=== PATIENT | male | born 1945 | race Caucasian/White ===

== ENCOUNTER 2016-05-04 06:45 | Day surgery (SDC) | payer OTHER ==
[2016-04-26 10:06] VITALS: BMI 21.0
[~2016-05-04] VITALS: Ht 180.3 cm; Wt 68.2 kg
[~2016-05-04 06:45] MED LIST: ACET325T30 PO; ALBU4TAB10 INH; ASPI81TA28 PO; ATOR10TA88 PO; CARV6.252 PO; HYT/2 PO; IPRASOL4 INH; LACTATED RINGER'S 1000ML 1,000 ML IV SCH; NTRGSL/4 UT; PANT40TA PO
[2016-05-04 07:02] VITALS: BP 99/68; PULSE 97; TEMP 36.4; O2SAT 93; Ht 180.3 cm; Wt 68.2 kg
[2016-05-04] MEDS ORDERED: METO-157 PO (07:48)
[2016-05-04 08:07] LABS: HEMATOCRIT 45.4 % (42-52); MEAN CELL VOLUME 91.9 fL (80-100); MEAN CORPUSCULAR HEMOGLOBIN 31.4 pg (25-34); MEAN PLATELET VOLUME 9.8 fL (7.4-10.4); PLATELET COUNT 221 K/uL (130-400); RED BLOOD COUNT 4.94 M/uL (4.7-6.1); WHITE BLOOD COUNT 6.47 K/uL (4.8-10.8)
[2016-05-04] MEDS ORDERED: ROCURONIUM BROMIDE 10 MG/ML 5 ML VIAL ONE (08:20)
[2016-05-04] MEDS ORDERED: FENTANYL CITRATE INJ 50 MCG/1 ML 2 ML VIAL ONE (08:20)
[2016-05-04] MEDS ORDERED: SUCCINYLCHOLINE CHLORIDE 20 MG/ML 10 ML VIAL IV ONE (08:20)
[2016-05-04] MEDS ORDERED: LIDOCAINE HCL 2% 2 ML VIAL (20MG/ML) ONE (08:20)
[2016-05-04] MEDS ORDERED: PROPOFOL IV EMULSION 10 MG/ML 20 ML VIAL IV ONE (08:20)
[2016-05-04 08:35] LABS: BUN/CREATININE RATIO 11.8 (10-20); CALCIUM 8.5 mg/dl (8.5-10.1); CREATININE 0.83 mg/dl (0.60-1.40); MEAN CORPUSCULAR HGB CONC 34.1 g/dl (32-36); POTASSIUM 4.1 mmol/L (3.5-5.1)
[2016-05-04] MEDS ORDERED: EpHEDrine SULFATE 50MG/5ML SYR ONE (08:57)
--- NOTE | 2016-05-04 09:08 | Endo History and Physical ---
History & Physical Date of Service: May 04, 2016. Chief Complaint: Difficulty swallowing Referring Physician: History of Present Illness 70 year old male with a history of dysphagia found to have a distal esophageal mass c/w adenocarcinoma. He presents today for EUS, recent PET shows multiple positive LN. He has a history of severe COPD. Past Surgical History Hx Cardiac Surgery: No Hx Abdominal Surgery: No Hx Post-Op Nausea and Vomiting: No Hx Cancer Surgery: No Hx Thoracic Surgery: No Hx Orthopedic: No Hx Urinary Tract Surgery: No Social History Smoking Status: Current Every Day Smoker Hx Substance Use: No Hx Alcohol Use: No ([employer]) Allergies Coded Allergies: No Known Allergies (Unverified , 04/26/16) Current Medications Reported Home Medications Medications Dose Route/Sig Max Daily Dose Days Date Category Reglan (Metoclopramide HCl) 10 Mg Tab 10 Mg PO ACHS 05/04/16 Reported Duoneb (Ipratropium-Albuterol) 3 Ml Nebu 1 Treatment INH Q4H PRN 02/16/16 Reported Nitrostat (Nitroglycerin) 0.4 Mg Tab 0.4 Mg UT PRN PRN 02/16/16 Reported Acetaminophen 325 Mg Tab 2 Tabs PO QID 02/16/16 Reported Ventolin (Albuterol Sulfate) 4 Mg Tab 2 Puffs INH TID 02/16/16 Reported Hytrin (Terazosin HCl) 2 Mg Cap 2 Mg PO HS 02/16/16 Reported Coreg (Carvedilol) 6.25 Mg Tab 6.25 Mg PO BID 02/16/16 Reported Lipitor (Atorvastatin Calcium) 10 Mg Tab 10 Mg PO QAM 02/16/16 Reported Aspirin Ec (Aspirin) 81 Mg Tab 81 Mg PO QAM 02/16/16 Reported Vital Signs Weight (Kilograms): 68.18 Height (Feet): 5 Height (Inches): 11 Date Time Temp Pulse Resp B/P Pulse Ox O2 Delivery O2 Flow Rate FiO2 05/04/16 07:02 36.4 97 20 99/68 93 Room Air Physical Exam General Appearance: no apparent distress, + cachetic Respiratory/Chest: Auscultation: deminished air movement Cardiovascular: Heart Auscultation: no gallops, II/ JOMAR Abdomen: Inspection & Palpation: soft, non-distended Assessment and Plan patient referred for EGD / EUS as part of staging of a recently diagnosed esophageal cancer. As his PET shows locally metastatic disease he may be an unlikely surgical candidate in the future. After a long discussion we are planning for EGD / EUS and possible esophageal stent placement for alleviation of his symptoms while awaiting input from medical and radiation oncology. We have discussed the risks to include bleeding, infection, perforation, pain, and with stent placment the possibility of stent migration. Plan EGD EUS possible esophageal stent placement
[2016-05-04] MEDS ORDERED: ALBUT/IPRATROP 3MG/0.5MG NEB 3 ML VIAL INH ONE (09:15)
[2016-05-04] MEDS ORDERED: PHENYLEPHRINE 100MCG/ML 5ML SYR IV PRN (09:15)
[2016-05-04] MEDS ORDERED: EpHEDrine SULFATE INJ 50 MG/ML AMP IV PRN (09:15)
[2016-05-04] MEDS ORDERED: ATROPINE SULFATE 0.1 MG/ML 5ML SYR IV PRN (09:15)
[2016-05-04] MEDS ORDERED: ONDANSETRON INJ 2 MG/ML 2 ML VIAL IV PRN (09:15)
[2016-05-04] MEDS ORDERED: HYDROmorphone INJ 2 MG/ML SYR/VIAL IV PRN (09:15)
[2016-05-04 09:34] VITALS: PULSE 89; O2SAT 97
[2016-05-04] MEDS ORDERED: ONDANSETRON INJ 2 MG/ML 2 ML VIAL ONE ×2 (10:08→11:45)
--- NOTE | 2016-05-04 10:56 | GI REPORT ---
Procedure Date: 05/04/2016 9:47 AM Procedure: Upper GI endoscopy Indications: Dysphagia, Malignant esophageal adenocarcinoma, For therapy of malignant esophageal adenocarcinoma Medicines: General Anesthesia Complications: No immediate complications. Estimated blood loss: Minimal. Estimated Blood Loss: Estimated blood loss was minimal. Procedure: Pre-Anesthesia Assessment: - Prior to the procedure, a History and Physical was performed, and patient medications, allergies and sensitivities were reviewed. The patient's tolerance of previous anesthesia was reviewed. - The risks and benefits of the procedure and the sedation options and risks were discussed with the patient. All questions were answered and informed consent was obtained. - Patient identification and proposed procedure were verified prior to the procedure by the physician, the nurse and the hypertrichologist. The procedure was verified in the procedure room. - Pre-procedure physical examination revealed no contraindications to sedation. - ASA Grade Assessment: III - A patient with severe systemic disease. - After reviewing the risks and benefits, the patient was deemed in satisfactory condition to undergo the procedure. - The anesthesia plan was to use general anesthesia. - Immediately prior to administration of medications, the patient was re-assessed for adequacy to receive sedatives. - The heart rate, respiratory rate, oxygen saturations, blood pressure, adequacy of pulmonary ventilation, and response to care were monitored throughout the procedure. - The physical status of the patient was re-assessed after the procedure. After obtaining informed consent, the endoscope was passed under direct vision. Throughout the procedure, the patient's blood pressure, pulse, and oxygen saturations were monitored continuously. The On-site loaner was introduced through the mouth, and advanced to the second part of duodenum. The upper GI endoscopy was accomplished without difficulty. The patient tolerated the procedure well. Findings: A medium-sized, ulcerating mass with no bleeding and with no stigmata of recent bleeding was found in the lower third of the esophagus extending from 36 cm to about 40. The mass was partially obstructing and circumferential. A TTS dilator was passed through the scope. Dilation with a 10-11-12 mm balloon (to a maximum balloon size of 12 mm) dilator was performed. Estimated blood loss was minimal. The mass was easy to dilate and traverse with the upper endoscope (not certan if an esophageal stent will hold in position). The entire examined stomach was normal. The examined duodenum was normal. Impression: - Partially obstructing, malignant esophageal tumor was found in the lower third of the esophagus. Dilated. - Normal stomach. - Normal examined duodenum. Recommendation: - Perform an upper endoscopic ultrasound (UEUS) today. Gary Pimentel D.O. Gary Pimentel, 05/04/2016 10:55:53 AM This report has been signed electronically. Note Initiated On: 05/04/2016 9:47 AM
--- NOTE | 2016-05-04 11:02 | GI REPORT ---
Procedure Date: 05/04/2016 9:59 AM Procedure: Upper EUS Indications: Staging of esophageal adenocarcinoma, Pre-treatment staging of esophageal adenocarcinoma Medicines: General Anesthesia Complications: No immediate complications. Estimated blood loss: Minimal. Estimated Blood Loss: Estimated blood loss was minimal. Procedure: Pre-Anesthesia Assessment: - Prior to the procedure, a History and Physical was performed, and patient medications, allergies and sensitivities were reviewed. The patient's tolerance of previous anesthesia was reviewed. - The risks and benefits of the procedure and the sedation options and risks were discussed with the patient. All questions were answered and informed consent was obtained. - Patient identification and proposed procedure were verified prior to the procedure by the physician, the nurse and the film booker. The procedure was verified in the procedure room. - Pre-procedure physical examination revealed no contraindications to sedation. - ASA Grade Assessment: III - A patient with severe systemic disease. - After reviewing the risks and benefits, the patient was deemed in satisfactory condition to undergo the procedure. - The anesthesia plan was to use general anesthesia. - Immediately prior to administration of medications, the patient was re-assessed for adequacy to receive sedatives. - The heart rate, respiratory rate, oxygen saturations, blood pressure, adequacy of pulmonary ventilation, and response to care were monitored throughout the procedure. - The heart rate, respiratory rate, oxygen saturations, blood pressure, adequacy of pulmonary ventilation, and response to care were monitored throughout the procedure. - The physical status of the patient was re-assessed after the procedure. After obtaining informed consent, the endoscope was passed under direct vision. Throughout the procedure, the patient's blood pressure, pulse, and oxygen saturations were monitored continuously. The Endosonoscope was introduced through the mouth, and advanced to the lower third of esophagus. We were not able to pass beyond the tumor despite pre-dilation. The upper EUS was accomplished without difficulty. The patient tolerated the procedure well. The Endosonoscope was introduced through the mouth, and advanced to the lower third of esophagus. Findings: Endosonographic Finding : A hypoechoic mass was found in the gastroesophageal junction. The mass was encountered at 37 cm from the incisors and extended to 42 cm. The lesion was partially circumferential (involving 80% of the lumen). The endosonographic borders were irregular. The mass measured up to 8 mm in thickness. There was sonographic evidence suggesting invasion into the muscularis propria (Layer 4). An intact interface was seen between the mass and the adjacent structures suggesting a lack of invasion. Many lymph nodes were visualized with the ultrasound probe in the subcarinal mediastinum (level 7). The nodes were round. The first node measured 10 mm by 8 mm. The second node measured 20 mm in maximal cross-sectional diameter. Fine needle aspiration for cytology was performed. Color Doppler imaging was utilized prior to needle puncture to confirm a lack of significant vascular structures within the needle path. Four passes were made with the 22 gauge needle using a transesophageal approach. A stylet was used. A dry cleaning counter clerk was present and performed a preliminary cytologic examination. Final cytology results are pending. Estimated blood loss was minimal. Impression: - A mass was found in the gastroesophageal junction. A tissue diagnosis was obtained prior to this exam. This is of adenocarcinoma. This was staged T3 N1 Mx by endosonographic criteria. - Many lymph nodes were visualized and measured in the subcarinal mediastinum (level 7). Fine needle aspiration performed. Recommendation: - Discharge patient to home (ambulatory). - Full liquid diet today. - Await cytology results. - Refer to a surgeon and oncologist at appointment to be scheduled. Gary Pimentel D.O. Gary Pimentel, 05/04/2016 11:03:01 AM This report has been signed electronically. Note Initiated On: 05/04/2016 9:59 AM
--- NOTE | 2016-05-04 11:07 | [facility] Post Operative Brief Note ---
Immediate Operative Summary Operative Date May 04, 2016. Pre-Operative Diagnosis distal esophageal mass c/w adenocarcinoma Post-Operative Diagnosis distal esophageal mass c/w adenocarcinoma Procedure(s) Performed Upper Endoscopic Ultrasonography, Upper gastrointestinal endoscopy Surgeon Dr. Gary Pimentel Contracts Director Surgeon(s) none Estimated Blood Loss 0 Findings Unable to fully traverse mass limiting todays exam T3N1 by EUS Specimens FNA of a subcarinal LN Anesthesia General Complication(s) None Disposition Recovery Room / PACU
--- NOTE | 2016-05-04 11:09 | Discharge Instructions ---
Endoscopy Patient Instructions Date / Procedure(s) Performed May 04, 2016. EGD, Other (Endoscopic ultrasound) Allergy Information Coded Allergies: No Known Allergies (Unverified , 04/26/16) Discharge Date / Findings May 04, 2016. Esophageal cancer stge T3N1Mx by EUS I was not able to fully traverse the mass with the echoendoscope which limits staging ability. Medication Instructions Restart Stopped Medication(s): Reported Home Medications Medications Dose Route/Sig Max Daily Dose Days Date Category Reglan (Metoclopramide HCl) 10 Mg Tab 10 Mg PO ACHS 05/04/16 Reported Duoneb (Ipratropium-Albuterol) 3 Ml Nebu 1 Treatment INH Q4H PRN 02/16/16 Reported Nitrostat (Nitroglycerin) 0.4 Mg Tab 0.4 Mg UT PRN PRN 02/16/16 Reported Acetaminophen 325 Mg Tab 2 Tabs PO QID 02/16/16 Reported Ventolin (Albuterol Sulfate) 4 Mg Tab 2 Puffs INH TID 02/16/16 Reported Hytrin (Terazosin HCl) 2 Mg Cap 2 Mg PO HS 02/16/16 Reported Coreg (Carvedilol) 6.25 Mg Tab 6.25 Mg PO BID 02/16/16 Reported Lipitor (Atorvastatin Calcium) 10 Mg Tab 10 Mg PO QAM 02/16/16 Reported Aspirin Ec (Aspirin) 81 Mg Tab 81 Mg PO QAM 02/16/16 Reported Provider Instructions Activity Restrictions - No exercising or heavy lifting for 24 hours. - Do not drink alcohol the day of the procedure. - Do not drive a car or operate machinery until the day after the procedure. - Do not make any important decisions or sign important papers in 24 hours after the procedure. Following Day: - Return to full activity which may include returning to work/school. Diet Start your diet with liquids and light foods (jello, soup, juice, toast). Then eat your usual diet if not nauseated. Treatment For Common After Affects For mild abdominal pain, bloating, or excessive gas: - Rest - Eat lightly - Lie on right side Follow-Up Information Referral to CT Surgery and Medical oncology needed Patient will likely benefit from Radiation / chemotherapy Anesthesia Information What You Should Know You have had a procedure that required some medicine to reduce anxiety and discomfort. This treatment is called moderate sedation. After receiving the treatment, you may be sleepy, but you will be able to breathe on your own. The effects of the treatment may last for several hours. Follow these instructions along with Activity/Diet recommendations noted above: * Do NOT do anything where dizziness or clumsiness would be dangerous. * Rest quietly at home today, then you can be up and about tomorrow. * Have a responsible person stay with you the rest of today. * You may have had an I.V. today. If so, you may take the dressing off later today. Recommendations Call your doctor if: * Trouble breathing * Continuous vomiting for more than 24 hours * Temperature above 101 degrees * Severe abdominal pain or bloating * Pain not relieved by pain medicine ordered * There is increased drainage or redness from any incision * A large amount of rectal bleeding greater than 2-3 tablespoons. (If you had a polyp/s removed or have hemorrhoids, a small amount of blood - from the rectum is to be expected.) * You have any unanswered questions or concerns. IN THE EVENT OF A SERIOUS EMERGENCY, GO TO THE NEAREST EMERGENCY ROOM Your discharge instructions were prepared by provider Gary Pimentel. Patient Instructions Signature Page Ariel Patel Patient (or Guardian) Signature/Date: I have read and understand the instructions given to me by my caregivers. Caregiver/RN/Doctor Signature/Date: The above-named patient and/or guardian has received patient instructions on this date. + Original Patient Signature Page (only) stays with chart. Please make copy for patient.
--- NOTE | 2016-05-04 11:25 | Anesthesiology Progress Note ---
Anesthesia Post Op Note Date & Time May 04, 2016 at 11:25 Vital Signs Pain Intensity: 0 Vital Signs Past 12 Hours Date Time Temp Pulse Resp B/P Pulse Ox O2 Delivery O2 Flow Rate FiO2 05/04/16 11:15 80 15 117/64 94 Room Air 05/04/16 11:05 81 17 119/64 100 Mask 10 05/04/16 10:55 86 23 106/61 100 Mask 10 05/04/16 10:46 36.4 80 16 136/78 94 Mask 10 05/04/16 09:34 89 12 97 Room Air 05/04/16 07:02 36.4 97 20 99/68 93 Room Air Notes Mental Status: alert / awake / arousable, participated in evaluation Pt Amnestic to Procedure: Yes Nausea / Vomiting: adequately controlled Pain: adequately controlled Airway Patency, RR, SpO2: stable & adequate BP & HR: stable & adequate Hydration State: stable & adequate Anesthetic Complications: no major complications apparent
[2016-05-04 11:30] VITALS: BP 117/71; PULSE 84; TEMP 36.6; O2SAT 92
[2016-05-04] MEDS ORDERED: LARYING-O-JET KIT (LTA) EXT ONE ×2 (11:41)
[2016-05-04] MEDS ORDERED: DEXAMETHASONE SOD INJ 4 MG/ML VIAL ONE (11:45)
[2016-05-04] MEDS ORDERED: GLYCOPYRROLATE INJ 0.2 MG/ML VIAL ONE (11:45)
[2016-05-04 12:00] VITALS: BP 120/67; PULSE 86; O2SAT 92
[2016-05-04 12:27] VITALS: BP 115/64; PULSE 87; TEMP 36.5; O2SAT 92
[2016-05-16] MEDS ORDERED: PANT40TA PO (10:14)
[2016-06-15] MEDS ORDERED: NEOMOIN76 TOP (11:36)
[2016-07-31] MEDS ORDERED: AMOX400S2 PO (12:57)
== END 2016-05-04 12:40 ==
LOC: C.ACU 06:45
PROVIDERS: ATTEND Internal Medicine Gastroenterology
DX: C15.9 Malignant neoplasm of esophagus, unspecified (principal); J44.9 Chronic obstructive pulmonary disease, unspecified; F17.210 Nicotine dependence, cigarettes, uncomplicated; Z79.82 Long term (current) use of aspirin

== ENCOUNTER 2016-05-25 05:31 | Day surgery (SDC) | payer OTHER ==
[2016-05-16 10:15] VITALS: BMI 21.0
--- NOTE | 2016-05-16 10:41 | PAT Medication Instructions ---
Service Date May 16, 2016. Current Home Medication List Acetaminophen (Acetaminophen), 2 TABS PO QID PRN for Pain Albuterol (Ventolin), 2 PUFFS INH TID Aspirin (Aspirin Ec), 81 MG PO QAM Atorvastatin (Lipitor), 10 MG PO QAM Carvedilol (Coreg), 6.25 MG PO BID Ipratropium-Albuterol (Duoneb), 1 TREATMENT INH QID PRN for Shortness of Breath Nitroglycerin (Nitrostat), 0.4 MG UT PRN PRN for Chest Pain Pantoprazole (Protonix), 40 MG PO BID Terazosin Hcl (Hytrin), 2 MG PO HS Medication Instructions For Your Scheduled Surgery - Check with surgeon for instructions (okay to continue as directed from anesthesia perspective) Aspirin (Aspirin Ec), 81 MG PO QAM - Take the following medications the morning of surgery with a sip of water: Pantoprazole (Protonix), 40 MG PO BID Nitroglycerin (Nitrostat), 0.4 MG UT PRN PRN for Chest Pain Ipratropium-Albuterol (Duoneb), 1 TREATMENT INH QID PRN for Shortness of Breath Carvedilol (Coreg), 6.25 MG PO BID Atorvastatin (Lipitor), 10 MG PO QAM Albuterol (Ventolin), 2 PUFFS INH TID Acetaminophen (Acetaminophen), 2 TABS PO QID PRN for Pain - Take the following medications as scheduled the night before surgery: Pantoprazole (Protonix), 40 MG PO BID Terazosin Hcl (Hytrin), 2 MG PO HS Nitroglycerin (Nitrostat), 0.4 MG UT PRN PRN for Chest Pain Ipratropium-Albuterol (Duoneb), 1 TREATMENT INH QID PRN for Shortness of Breath Carvedilol (Coreg), 6.25 MG PO BID Albuterol (Ventolin), 2 PUFFS INH TID Acetaminophen (Acetaminophen), 2 TABS PO QID PRN for Pain If you have any questions please call us at [phone] (Niya Bennett PA-C) or [phone] or [phone]
[~2016-05-25] VITALS: Ht 180.3 cm; Wt 63.7 kg
[~2016-05-25 05:31] MED LIST changes: -LACTATED RINGER'S 1000ML 1,000 ML IV SCH
[2016-05-25 05:58] VITALS: BP 105/60; PULSE 90; TEMP 36.6; O2SAT 91; BMI 19.0
[2016-05-25] MEDS ORDERED: LACTATED RINGER'S 1000ML 1,000 ML IV SCH (06:00)
[2016-05-25 06:21] VITALS: TEMP 36.6; O2SAT 91; Ht 180.3 cm; Wt 63.7 kg
[2016-05-25] MEDS ORDERED: PROPOFOL IV EMULSION 10 MG/ML 20 ML VIAL IV ONE ×2 (07:01→08:22)
[2016-05-25] MEDS ORDERED: NEOSTIGMINE METHYLSULFATE 5 MG/5 ML SYR ONE (07:01)
[2016-05-25] MEDS ORDERED: LIDOCAINE HCL 2% 2 ML VIAL (20MG/ML) ONE ×2 (07:01→08:23)
[2016-05-25] MEDS ORDERED: MIDAZOLAM HCL 1 MG/ML 2ML VIAL ONE (07:01)
[2016-05-25] MEDS ORDERED: GLYCOPYRROLATE INJ 0.2 MG/ML VIAL ONE (07:01)
[2016-05-25] MEDS ORDERED: ROCURONIUM BROMIDE 10 MG/ML 5 ML VIAL ONE (07:01)
[2016-05-25] MEDS ORDERED: ONDANSETRON INJ 2 MG/ML 2 ML VIAL ONE (07:01)
[2016-05-25] MEDS ORDERED: FENTANYL CITRATE INJ 50 MCG/1 ML 2 ML VIAL ONE (07:01)
[2016-05-25] MEDS ORDERED: DEXAMETHASONE SOD INJ 4 MG/ML VIAL ONE (07:01)
[2016-05-25] MEDS ORDERED: SODIUM CHLORIDE 0.9% 500ML 500 ML IV ONE (07:26)
--- NOTE | 2016-05-25 07:26 | Endo History and Physical ---
History & Physical Date of Service: May 25, 2016. Chief Complaint: Esophageal carcinoma Referring Physician: [facility] History of Present Illness Patient with unresectable carcinoma of the GE junction, now with progressive dyspagia on liquids only. Past Surgical History Hx Cardiac Surgery: No Hx Abdominal Surgery: No Hx Post-Op Nausea and Vomiting: No Hx Cancer Surgery: No Hx Thoracic Surgery: No Hx Orthopedic: Yes (CYST EXCISION right ARM) Hx Urinary Tract Surgery: No Social History Smoking Status: Current Every Day Smoker Hx Substance Use: No Hx Alcohol Use: No ([facility]) Allergies Coded Allergies: No Known Allergies (Unverified , 05/25/16) Current Medications Reported Home Medications Medications Dose Route/Sig Max Daily Dose Days Date Category Protonix (Pantoprazole Sodium) 40 Mg Tab 40 Mg PO BID 05/16/16 Reported Duoneb (Ipratropium-Albuterol) 3 Ml Nebu 1 Treatment INH QID PRN 02/16/16 Reported Nitrostat (Nitroglycerin) 0.4 Mg Tab 0.4 Mg UT PRN PRN 02/16/16 Reported Acetaminophen 325 Mg Tab 2 Tabs PO QID PRN 02/16/16 Reported Ventolin (Albuterol Sulfate) 4 Mg Tab 2 Puffs INH TID 02/16/16 Reported Hytrin (Terazosin HCl) 2 Mg Cap 2 Mg PO HS 02/16/16 Reported Coreg (Carvedilol) 6.25 Mg Tab 6.25 Mg PO BID 02/16/16 Reported Lipitor (Atorvastatin Calcium) 10 Mg Tab 10 Mg PO QAM 02/16/16 Reported Aspirin Ec (Aspirin) 81 Mg Tab 81 Mg PO QAM 02/16/16 Reported Vital Signs Weight (Kilograms): 63.7 Height (Feet): 5 Height (Inches): 11 Date Time Temp Pulse Resp B/P Pulse Ox O2 Delivery O2 Flow Rate FiO2 05/25/16 06:21 36.6 22 91 Room Air 05/25/16 05:58 36.6 90 22 105/60 91 Room Air Physical Exam General Appearance: WD/WN, no apparent distress, + pertinent finding (thin) Respiratory/Chest: Auscultation: breath sounds normal, no wheezing, no rales/crackles Cardiovascular: Heart Auscultation: RRR, normal S1, no murmurs Abdomen: Bowel Sounds: normal Inspection & Palpation: soft, no tenderness, guarding & rebound, no masses Liver: no hepatomegaly Assessment and Plan EGD with placement of esophageal stent.
[2016-05-25] MEDS ORDERED: FENTANYL CITRATE INJ 50 MCG/1 ML 2 ML VIAL IV PRN (08:00)
[2016-05-25] MEDS ORDERED: ATROPINE SULFATE 0.1 MG/ML 5ML SYR IV PRN (08:00)
[2016-05-25] MEDS ORDERED: HYDROmorphone INJ 1 MG/ML SYR IV PRN (08:00)
[2016-05-25] MEDS ORDERED: MEPERIDINE HCL 25 MG/ML CARP IV PRN (08:00)
[2016-05-25] MEDS ORDERED: EpHEDrine SULFATE INJ 50 MG/ML AMP IV PRN (08:00)
[2016-05-25] MEDS ORDERED: LABETALOL HCL IV 5 MG/ML 20ML IV PRN (08:00)
[2016-05-25] MEDS ORDERED: ONDANSETRON INJ 2 MG/ML 2 ML VIAL IV PRN (08:00)
--- NOTE | 2016-05-25 08:32 | GI REPORT ---
Procedure Date: 05/25/2016 7:22 AM Procedure: Upper GI endoscopy Indications: For therapy of malignant esophageal adenocarcinoma Medicines: Monitored Anesthesia Care Complications: No immediate complications. Estimated blood loss: None. Estimated Blood Loss: Estimated blood loss: none. Procedure: Pre-Anesthesia Assessment: - Prior to the procedure, a History and Physical was performed, and patient medications, allergies and sensitivities were reviewed. The patient's tolerance of previous anesthesia was reviewed. - ASA Grade Assessment: III - A patient with severe systemic disease. After obtaining informed consent, the endoscope was passed under direct vision. Throughout the procedure, the patient's blood pressure, pulse, and oxygen saturations were monitored continuously. The scope was introduced through the mouth, and advanced to the third part of duodenum. The upper GI endoscopy was accomplished without difficulty. The patient tolerated the procedure well. Findings: A large, fungating mass with no bleeding and with no stigmata of recent bleeding was found in the lower third of the esophagus. The mass was partially obstructing and circumferential. For location marking, one hemostatic clip was successfully placed (MR conditional). There was no bleeding at the end of the procedure. External markers were also placed with fluoroscopic guidance. One moderate malignant-appearing, intrinsic stenosis was found 36 to 42 cm from the incisors. It was traversed. This was stented with a 20 mm x 10 cm [employer] Evolution partially covered controlled-release stent with a 25 mm flange (REF# [id number] LOT# [id number] REF# [id number]) under fluoroscopic guidance. The scope was reinserted. The stent appeared to be in excellent position. The stomach was normal. The examined duodenum was normal. Impression: - Partially obstructing, malignant esophageal tumor was found in the lower third of the esophagus. Clip (MR conditional) was placed. - Malignant-appearing esophageal stenosis. Prosthesis placed. - Normal stomach. - Normal examined duodenum. - No specimens collected. Recommendation: - Full liquid diet for 3 days, then advance as tolerated to mechanical soft diet. - Return patient to [facility]. Graham Fraser M.D. Graham Fraser MD 05/25/2016 8:32:15 AM This report has been signed electronically. Note Initiated On: 05/25/2016 7:22 AM I attest to the content of the Intraoperative Record and orders documented therein, exceptions below
--- NOTE | 2016-05-25 08:41 | Discharge Instructions ---
Endoscopy Patient Instructions Date / Procedure(s) Performed May 25, 2016. Allergy Information Coded Allergies: No Known Allergies (Unverified , 05/25/16) Discharge Date / Findings May 25, 2016. Esophageal cancer with obstruction, treated with placement of self expanding metal stent. Medication Instructions Restart Stopped Medication(s): Restart all medications today. Tramadol PRN for chest pain after stent placement. Continue pantoprazole twice daily. Provider Instructions Activity Restrictions - No exercising or heavy lifting for 24 hours. - Do not drink alcohol the day of the procedure. - Do not drive a car or operate machinery until the day after the procedure. - Do not make any important decisions or sign important papers in 24 hours after the procedure. Following Day: - Return to full activity which may include returning to work/school. Diet Full liquid diet for three days. Advance to mechanical soft (chopped) diet as tolerated. Drink fluids between swallows, encourage carbonated drinks. Do not lie down within three hours of eating. Treatment For Common After Affects For mild abdominal pain, bloating, or excessive gas: - Rest - Eat lightly - Lie on right side Follow-Up Information Follow-up with as scheduled Anesthesia Information What You Should Know You have had a procedure that required some medicine to reduce anxiety and discomfort. This treatment is called moderate sedation. After receiving the treatment, you may be sleepy, but you will be able to breathe on your own. The effects of the treatment may last for several hours. Follow these instructions along with Activity/Diet recommendations noted above: * Do NOT do anything where dizziness or clumsiness would be dangerous. * Rest quietly at home today, then you can be up and about tomorrow. * Have a responsible person stay with you the rest of today. * You may have had an I.V. today. If so, you may take the dressing off later today. Recommendations Call your doctor if: * Trouble breathing * Continuous vomiting for more than 24 hours * Temperature above 101 degrees * Severe abdominal pain or bloating * Pain not relieved by pain medicine ordered * There is increased drainage or redness from any incision * A large amount of rectal bleeding greater than 2-3 tablespoons. (If you had a polyp/s removed or have hemorrhoids, a small amount of blood - from the rectum is to be expected.) * You have any unanswered questions or concerns. IN THE EVENT OF A SERIOUS EMERGENCY, GO TO THE NEAREST EMERGENCY ROOM Your discharge instructions were prepared by provider Graham Fraser. Patient Instructions Signature Page Ariel Patel Patient (or Guardian) Signature/Date: I have read and understand the instructions given to me by my caregivers. Caregiver/RN/Doctor Signature/Date: The above-named patient and/or guardian has received patient instructions on this date. + Original Patient Signature Page (only) stays with chart. Please make copy for patient.
--- NOTE | 2016-05-25 08:46 | Anesthesiology Progress Note ---
Anesthesia Post Op Note Date & Time May 25, 2016 at 08:46 Vital Signs Pain Intensity: 0 Vital Signs Past 12 Hours Date Time Temp Pulse Resp B/P Pulse Ox O2 Delivery O2 Flow Rate FiO2 05/25/16 08:40 82 18 121/71 94 Room Air 05/25/16 08:30 36.1 85 18 109/60 94 Room Air 05/25/16 08:20 83 22 120/68 96 Nasal Cannula 2 05/25/16 08:17 36.0 81 22 98/60 95 Nasal Cannula 2 05/25/16 06:21 36.6 22 91 Room Air 05/25/16 05:58 36.6 90 22 105/60 91 Room Air Notes Mental Status: alert / awake / arousable, participated in evaluation Pt Amnestic to Procedure: Yes Nausea / Vomiting: adequately controlled Pain: adequately controlled Airway Patency, RR, SpO2: stable & adequate BP & HR: stable & adequate Hydration State: stable & adequate Anesthetic Complications: no major complications apparent
[2016-05-25 08:47] VITALS: BP 122/65; PULSE 84; TEMP 37; O2SAT 93
[2016-05-25 09:15] VITALS: BP 125/68; PULSE 85; TEMP 36.5; O2SAT 94
--- NOTE | 2016-05-25 15:05 | DIAGNOSTIC IMAGING REPORT ---
FLUORO(ESOPHAGEAL DILATATION) CLINICAL HISTORY: EGD WITH STENT PLACEMENT. Esophageal narrowing. COMPARISON STUDY: Chest CT 02/17/2016 FINDINGS: Total fluoroscopy time was 99 seconds. 4 fluoroscopic spot images were submitted. Initial images demonstrate an endoscope at the distal esophagus followed by placement of a guidewire. Esophageal stent was placed within the distal esophagus. IMPRESSION: Fluoroscopy provided for distal esophageal stent placement. Electronically signed by: Robert Conway M.D. 05/25/2016 3:04 PM Dictated Date/Time: 05/25/2016 3:03 PM
[2016-06-15] MEDS ORDERED: NEOMOIN76 TOP (11:36)
[2016-07-31] MEDS ORDERED: AMOX400S2 PO (12:57)
== END 2016-05-25 09:30 | disposition home or self-care (01) ==
LOC: C.ACU 05:31
PROVIDERS: ATTEND Internal Medicine Gastroenterology
DX: C15.9 Malignant neoplasm of esophagus, unspecified (principal); K22.2 Esophageal obstruction; F17.210 Nicotine dependence, cigarettes, uncomplicated; Z79.899 Other long term (current) drug therapy

== ENCOUNTER → 2016-05-26 | Outpatient (CLI) | payer OTHER ==
[~2016-05-26] MED LIST changes: +ACET-749 PO; +AMOX400S2 PO; +NEOMOIN76 TOP; +ONDA8TAB6 PO; +[UNRECOGNIZED DRUG - OTHER] PO
[2016-05-26 15:47] LABS: BASO % 0.2 %; BASO ABS # 0.01 K/uL (0-0.2); EOS % 0.9 %; HEMATOCRIT 44.9 % (42-52); IG% 0.2 %; LYMPH % 19.3 %; LYMPH ABS # 1.04 K/uL (1.2-3.4); MEAN CELL VOLUME 91.1 fL (80-100); MEAN CORPUSCULAR HEMOGLOBIN 31.6 pg (25-34); MEAN PLATELET VOLUME 10.3 fL (7.4-10.4); MONO % 15.2 %; NEUT % 64.2 %; PLATELET COUNT 112 K/uL (130-400); RED BLOOD COUNT 4.93 M/uL (4.7-6.1); WHITE BLOOD COUNT 5.39 K/uL (4.8-10.8)
[2016-05-26 16:13] LABS: COMPLETE YES; MEAN CORPUSCULAR HGB CONC 34.7 g/dl (32-36)
== END | disposition home or self-care (01) ==
LOC: C.LABSPEC 15:29
DX: R53.83 Other fatigue (principal)

== ENCOUNTER 2016-06-12 05:28 | Day surgery (SDC) | payer OTHER ==
--- NOTE | 2016-05-30 16:13 | PAT Medication Instructions ---
Service Date May 30, 2016. Current Home Medication List Acetaminophen (Acetaminophen), 2 TABS PO QID PRN for Pain Albuterol (Ventolin), 2 PUFFS INH TID Aspirin (Aspirin Ec), 81 MG PO QAM Atorvastatin (Lipitor), 10 MG PO QAM Carvedilol (Coreg), 6.25 MG PO BID Ipratropium-Albuterol (Duoneb), 1 TREATMENT INH QID PRN for Shortness of Breath Nitroglycerin (Nitrostat), 0.4 MG UT PRN PRN for Chest Pain Pantoprazole (Protonix), 40 MG PO BID Terazosin Hcl (Hytrin), 2 MG PO HS Medication Instructions For Your Scheduled Surgery - Check with surgeon for instructions (okay to continue as directed from anesthesia perspective) Aspirin (Aspirin Ec), 81 MG PO QAM - Take the following medications the morning of surgery with a sip of water: Pantoprazole (Protonix), 40 MG PO BID Nitroglycerin (Nitrostat), 0.4 MG UT PRN PRN for Chest Pain Ipratropium-Albuterol (Duoneb), 1 TREATMENT INH QID PRN for Shortness of Breath Carvedilol (Coreg), 6.25 MG PO BID Atorvastatin (Lipitor), 10 MG PO QAM Albuterol (Ventolin), 2 PUFFS INH TID Acetaminophen (Acetaminophen), 2 TABS PO QID PRN for Pain - Take the following medications as scheduled the night before surgery: Pantoprazole (Protonix), 40 MG PO BID Terazosin Hcl (Hytrin), 2 MG PO HS Nitroglycerin (Nitrostat), 0.4 MG UT PRN PRN for Chest Pain Ipratropium-Albuterol (Duoneb), 1 TREATMENT INH QID PRN for Shortness of Breath Carvedilol (Coreg), 6.25 MG PO BID Albuterol (Ventolin), 2 PUFFS INH TID Acetaminophen (Acetaminophen), 2 TABS PO QID PRN for Pain If you have any questions please call us at [phone] or [phone] or [phone]
[2016-05-30 16:17] VITALS: BMI 21.0
[~2016-06-12] VITALS: Ht 180.3 cm; Wt 65.0 kg
[~2016-06-12 05:28] MED LIST changes: -ACET-749 PO; -AMOX400S2 PO; -NEOMOIN76 TOP; -ONDA8TAB6 PO; -[UNRECOGNIZED DRUG - OTHER] PO
[2016-06-12 05:49] VITALS: BP 138/69; PULSE 83; TEMP 36.5; O2SAT 94; Ht 180.3 cm; Wt 65.0 kg
[2016-06-12] MEDS ORDERED: CEFAZOLIN 2000 MG/60 ML D5W IV SCH (06:00)
[2016-06-12] MEDS ORDERED: LACTATED RINGER'S 1000ML 1,000 ML IV SCH (06:00)
[2016-06-12] MEDS ORDERED: PROPOFOL IV EMULSION 10 MG/ML 20 ML VIAL IV ONE ×2 (06:29→07:23)
[2016-06-12] MEDS ORDERED: LIDOCAINE HCL 2% 2 ML VIAL (20MG/ML) ONE (06:29)
[2016-06-12] MEDS ORDERED: ONDANSETRON INJ 2 MG/ML 2 ML VIAL ONE (06:29)
[2016-06-12] MEDS ORDERED: MIDAZOLAM HCL 1 MG/ML 2ML VIAL ONE (06:29)
[2016-06-12] MEDS ORDERED: FENTANYL CITRATE INJ 50 MCG/1 ML 2 ML VIAL ONE (06:29)
[2016-06-12] MEDS ORDERED: BUPIVACAINE 0.5 % 5 MG/1 ML MPF 30ML VIAL ONE (06:40)
[2016-06-12] MEDS ORDERED: BACITRACIN OINT 15 GM TUBE ONE (06:40)
[2016-06-12] MEDS ORDERED: LIDOCAINE HCL 1% 20 ML VIAL ONE (06:40)
--- NOTE | 2016-06-12 07:03 | History & Physical Bridge Note ---
H&P Re-Evaluation Bridge Note: I have examined the patient, reviewed the History & Physical and in the interval since the performance of the History & Physical I have noted the following changes of clinical significance: No changes noted
[2016-06-12] MEDS ORDERED: LACTATED RINGER'S 1000ML 1,000 ML IV PRN (07:07)
[2016-06-12] MEDS ORDERED: FENTANYL CITRATE INJ 50 MCG/1 ML 2 ML VIAL IV PRN (07:15)
[2016-06-12] MEDS ORDERED: ONDANSETRON INJ 2 MG/ML 2 ML VIAL IV PRN (07:15)
[2016-06-12] MEDS ORDERED: PHENYLEPHRINE 100MCG/ML 5ML SYR ONE (07:29)
[2016-06-12] MEDS ORDERED: SODIUM CHLORIDE 0.9% 1000ML 1,000 ML IV SCH (08:32)
--- NOTE | 2016-06-12 08:32 | [facility] Post Operative Brief Note ---
Immediate Operative Summary Operative Date Jun 12, 2016. Pre-Operative Diagnosis Port placement for Esophageal Cancer Post-Operative Diagnosis Port placement for Esophageal Cancer Procedure(s) Performed Right Internal Jugular Vein Aport placement Surgeon Dr. Keena Campbell Ultimate Hoops Trainer Surgeon(s) None Estimated Blood Loss 5 ML Findings normal finding on RI vein Fluids (cc crystalloids) 700ml Specimens None per Dr. Campbell Drains none Anesthesia seadtion + local Complication(s) None Disposition Recovery Room / PACU
--- NOTE | 2016-06-12 08:42 | DIAGNOSTIC IMAGING REPORT ---
INTRAOPERATIVE CHEST SINGLE VIEW CLINICAL HISTORY: PORT CATHETER PLACEMENT COMPARISON STUDY: No previous studies for comparison. FINDINGS: A single intraoperative fluoroscopic spot image is provided for interpretation. This demonstrates a right-sided central venous catheter with its tip projected over the superior vena cava. 3 seconds of fluoroscopic time was utilized. IMPRESSION: Intraoperative fluoroscopic spot image demonstrating a right-sided central venous catheter with its tip projected over the superior vena cava Electronically signed by: Evangelist Ziegler M.D. 06/12/2016 8:41 AM Dictated Date/Time: 06/12/2016 8:40 AM
[2016-06-12] MEDS ORDERED: OXYCODONE/ACETAMINOPHEN 5-325 TAB PO PRN (08:45)
[2016-06-12] MEDS ORDERED: SODIUM CHLOR 0.45% + 20MEQ KCL 1,000 ML IV SCH (08:45)
[2016-06-12] MEDS ORDERED: MoRPHine SULFATE 2 MG/ML CARP IV PRN (08:45)
--- NOTE | 2016-06-12 08:45 | Discharge Instructions ---
Discharge Instructions Date of Service Jun 12, 2016. Visit Reason for Visit: Esophageal Cancer Discharge Discharge Diagnosis / Problem: S/P port- catheter insertion Discharge Goals Goal(s): Decrease discomfort, Improve function Activity Recommendations Activity Limitations: resume your previous activity Lifting Limitations: no more than 25 pounds Exercise/Sports Limitations: gradually increase as tolerated May Resume Sexual Activity: when tolerated Shower/Bathe: may shower/bathe in 3 days Driving or Machine Use: resume 3 days after discharge Anesthesia . Post Anesthesia Instructions: If you have had General Anesthesia or IV Sedation: * Do not drive today. * Resume driving when surgeon permits. * Do not make important decisions or sign legal documents today. * Call surgeon for: 1. Temperature elevations greater than 101 degrees F. 2. Uncontrollable pain. 3. Excessive bleeding. 4. Persistent nausea and vomiting. 5. Medication intolerance (nausea, vomiting or rash). * For nausea and vomiting use only clear liquids such as: tea, soda, bouillon until nausea subsides, then gradually increase diet as tolerated. * If you have any concerns or questions, call your surgeon's office. If physician is unavailable and it is an emergency, call 911 or go to the nearest emergency room. . Instructions / Follow-Up Instructions / Follow-Up keep the dressing on for 4 days, he can take a shower on 06/16/2016. take tylenol 650 mg po q6h prn for only 4 days, Follow up on 07/02/[phone] Diet Recommendations Recommended Home Diet: resume previous diet Procedures Procedures Performed: Right Internal Jugular Vein Aport placement Pending Studies Studies pending at discharge: no Medical Emergencies . Who to Call and When: Medical Emergencies: If at any time you feel your situation is an emergency, please call 911 immediately. . Non-Emergent Contact Non-Emergency issues call your: Primary Care Provider Call Non-Emergent contact if: you have a fever, temperature is above 100.5, your pain is not controlled, your pain is worsening, wound has increased drainage, wound has increased redness . . "Provider Documentation" section prepared by Keena Campbell. [place] Drug Monitoring Program Search Results: patient reviewed within database
--- NOTE | 2016-06-12 08:46 | Anesthesiology Progress Note ---
Anesthesia Post Op Note Date & Time Jun 12, 2016 at 08:46 Vital Signs Pain Intensity: 0 Vital Signs Past 12 Hours Date Time Temp Pulse Resp B/P Pulse Ox O2 Delivery O2 Flow Rate FiO2 06/12/16 08:35 81 14 110/51 95 Room Air 06/12/16 08:28 36.2 79 17 97/49 100 Mask 10 06/12/16 05:49 36.5 83 18 138/69 94 Room Air Notes Mental Status: alert / awake / arousable, participated in evaluation Pt Amnestic to Procedure: Yes Nausea / Vomiting: adequately controlled Pain: adequately controlled Airway Patency, RR, SpO2: stable & adequate BP & HR: stable & adequate Hydration State: stable & adequate Anesthetic Complications: no major complications apparent
--- NOTE | 2016-06-12 09:13 | DIAGNOSTIC IMAGING REPORT ---
SINGLE VIEW CHEST CLINICAL HISTORY: Status post infusion port placement. FINDINGS: An AP, portable, upright chest radiograph is correlated with chest CT dated 02/17/2016. The examination is degraded by portable technique and patient rotation. A right internal jugular central venous infusion port has been placed. The tip of the catheter projects over the brachiocephalic vein. An esophageal stent projects over the diaphragm. The cardiomediastinal silhouette is unremarkable. There is atherosclerotic calcification of the thoracic aorta. Advanced emphysema and chronic interstitial thickening/nodularity is similar to previous. No airspace consolidation, large pleural effusion, or pneumothorax is seen. The skeletal structures are osteopenic. Healed left-sided rib fractures are noted. IMPRESSION: 1. A right internal jugular central venous infusion port has been placed as above. No pneumothorax is seen post procedure. 2. Advanced emphysema. 3. No airspace consolidation or pleural effusion is identified. Electronically signed by: Carlos Ordonez M.D. 06/12/2016 9:12 AM Dictated Date/Time: 06/12/2016 9:09 AM
[2016-06-12 09:25] VITALS: BP 90/49; PULSE 76; TEMP 36.9; O2SAT 98
--- NOTE | 2016-06-12 09:29 | OPERATIVE REPORT ---
DATE OF OPERATION: 06/12/2016 PREOPERATIVE DIAGNOSIS: Esophageal cancer. POSTOPERATIVE DIAGNOSIS: Same. PROCEDURE: Port catheter insertion on the right IJ. SURGEON: Keena Campbell M.D. ANESTHESIA: Conscious sedation plus local. IV FLUIDS: 700 mL. ESTIMATED BLOOD LOSS: About 5 mL. FINDINGS: No more findings on the right internal jugular vein. COMPLICATIONS: None. INDICATIONS FOR THE PROCEDURE: This is a 71-year-old gentleman with diagnosis esophageal cancer. The patient will be required to do port insertion for chemotherapy. I did talk to the patient about the benefit and risk, alternate procedure. I indicated the risks may include but not limited such as bleeding, infection, injury to the lung, injury to the vessels, possible need chest tube insertion, even , catheter infection, dysfunction catheter. The patient understands. He signed informed consent and I answered all questions. OPERATION AND FINDINGS: DETAILS OF PROCEDURE: We brought the patient to the OR, put the patient in the supine position. The patient received SCD on bilateral legs to prevent DVT. Also, the patient received 2 grams Ancef IV for prophylactic antibiotic. The patient received conscious sedation by the anesthesiology. The patient put Trendelenburg position and then I used ultrasound to locate the right internal jugular vein. I put a marker on the skin. Then the patient right side up, chest and the neck was prepped and draped in routine sterile fashion. After a timeout, I injected local anesthesia by using 1% lidocaine mixed with 0.5% Marcaine around the right neck and right upper chest. Again, I used ultrasound to locate the right internal jugular vein and used a 15 syringe catheter to puncture the skin easily to reach the internal jugular vein easily nati blood back. Then I followed the wire through the needle and then I used fluoro to locate the wire and locate the SVC. Then at this moment, I made about 3 cm incision on the right upper chest, then I made a tunnel and create the port pocket then used the tunneling tool from the incision to the neck incision, passed the catheter in. Then I used a dilator catheter passed over wire and again under fluoro monitor the catheter. Once the catheter in I pulled out the wire and then I passed the port catheter through the dilator catheter sheath easily get in and then I pulled out the sheath and catheter and leaved the port catheter in. Again I used fluoro to locate the tip of the catheter. It was located junction between the SVC and right atrium. Once we sized the catheter and connected the port to the catheter. I injection the needle into the reservoir of the catheter port, easily nati blood and flushed using heparin with normal saline. Then I used 2-0 Prolene to fix the port in the 3 locations. Then we tied the suture down and closed the skin incision subcutaneous layer by using 2-0 Vicryl continuous running, closed skin by using 4-0 Vicryl continuous running and used needle puncture the Port-A-Cath reservoir again and easily nati blood. I injected 5 mL heparin with normal saline. Then we put the dressing on. The patient tolerated the procedure well. After the procedure, I gave patient the postop care instruction. The patient understands. I will follow up the patient in 2 weeks. I attest to the content of the Intraoperative Record and any orders documented therein. Any exceptions are noted below. VALENTIN
[2016-06-12 09:55] VITALS: BP 93/52; PULSE 81; TEMP 36.5; O2SAT 95
[2016-06-12 10:25] VITALS: BP 103/52; PULSE 81; TEMP 36.7; O2SAT 98
[2016-06-13] MEDS ORDERED: CEFAZOLIN IV 2,000 MG/60 ML D5W IV ONE (06:00)
[2016-06-15] MEDS ORDERED: NEOMOIN76 TOP (11:36)
[2016-07-31] MEDS ORDERED: AMOX400S2 PO (12:57)
== END 2016-06-12 10:30 | disposition home or self-care (01) ==
LOC: C.ACU 05:28
PROVIDERS: ATTEND Surgery
DX: C15.9 Malignant neoplasm of esophagus, unspecified (principal); R63.4 Abnormal weight loss; F17.210 Nicotine dependence, cigarettes, uncomplicated; J44.9 Chronic obstructive pulmonary disease, unspecified; I10 Essential (primary) hypertension; Z79.899 Other long term (current) drug therapy

== ENCOUNTER 2016-07-25 15:33 | Inpatient (IN) | payer OTHER ==
[~2016-07-25] VITALS: Ht 182.9 cm; Wt 71.3 kg
[~2016-07-25 15:33] MED LIST changes: +ATOR10TA82 PO; -ATOR10TA88 PO; +NEOMOIN76 TOP
[2016-07-25] MEDS ORDERED: SODIUM CHLORIDE 0.9% 1000ML 1,000 ML IV STA ×2 (15:42→17:12)
[2016-07-25] MEDS ORDERED: ACETAMINOPHEN 500 MG TAB PO STA (16:16)
[2016-07-25] MEDS ORDERED: ONDA8TAB6 PO (16:36)
[2016-07-25 16:37] LABS: BASO % 0.8 %; BASO ABS # 0.01 K/uL (0-0.2); COMPLETE YES; EOS % 2.4 %; HEMATOCRIT 36.7 % (42-52); LYMPH % 4.8 %; LYMPH ABS # 0.06 K/uL (1.2-3.4); MEAN CELL VOLUME 93.4 fL (80-100); MEAN CORPUSCULAR HGB CONC 32.2 g/dl (32-36); MEAN PLATELET VOLUME 9.4 fL (7.4-10.4); MONO % 5.6 %; NEUT % 86.4 %; PLATELET COUNT 158 K/uL (130-400); RED BLOOD COUNT 3.93 M/uL (4.7-6.1); WHITE BLOOD COUNT 1.26 K/uL (4.8-10.8)
--- NOTE | 2016-07-25 16:37 | DIAGNOSTIC IMAGING REPORT ---
CHEST ONE VIEW PORTABLE CLINICAL HISTORY: Chest Pain pain COMPARISON STUDY: 06/12/2016 FINDINGS: Central catheter in superior vena cava. Emphysematous change. No acute infiltrate. IMPRESSION: Emphysematous change. Chronic change. No acute process. Electronically signed by: Geo Hayes M.D. 07/25/2016 4:35 PM Dictated Date/Time: 07/25/2016 4:34 PM
[2016-07-25] MEDS ORDERED: [UNRECOGNIZED DRUG - OTHER] PO (16:41)
[2016-07-25] MEDS ORDERED: ACET-749 PO (16:41)
[2016-07-25] MEDS ORDERED: PIPERACILLIN/TAZOBACTAM 4.5 GM/100ML D5W IV STA (16:44)
[2016-07-25] MEDS ORDERED: VANCOMYCIN INJ 2,000 MG in SODIUM CHLORIDE 0.9% 500ML 500 ML IV SCH (16:45)
[2016-07-25 16:57] LABS: BLOOD UREA NITROGEN 17 mg/dl (7-18); BUN/CREATININE RATIO 19.2 (10-20); CALCIUM 8.4 mg/dl (8.5-10.1); CARBON DIOXIDE 27 mmol/L (21-32); CHLORIDE 102 mmol/L (98-107); GLUCOSE 154 mg/dl (70-99); POTASSIUM 4.9 mmol/L (3.5-5.1); SODIUM 136 mmol/L (136-145)
[2016-07-25 17:02] LABS: CKMB/CK RATIO 1.2 (0-3.0)
--- NOTE | 2016-07-25 17:22 | EMERGENCY ROOM VISIT NOTE ---
History Report prepared by Osvaldo: Jenny Mehta Under the Supervision of: Dr. Ash Mcnamara M.D. First contact with patient: 15:38 Chief Complaint: SHORTNESS OF BREATH Stated Complaint: SOB,DIZZY, NAUSEA FR [facility] History of Present Illness The patient is a 71 year old male who presents to the Emergency Room with complaints of worsening shortness of breath that started this morning. The patient came to the ED via ambulance from the long-term. At the long-term, the patient was reported to have an oxygen saturation of 70% on room air. Upon entering the room, the patent's oxygen saturation was 86% on room air. Per nursing staff, the patient has esophageal cancer and is getting radiation therapy for it. The patient has been receiving breathing treatments for the last few weeks, but he states that they have not helped. The patient is also experiencing dizziness with standing, a productive cough with clear sputum, nausea, and vomiting. Source of History: patient Onset: this morning Position: chest Quality: other (shortness of breath) Timing: worsening Associated Symptoms: + cough (productive with clear sputum), + nausea, + vomiting Note: hypoxia, dizziness with standing Review of Systems See HPI for pertinent positives & negatives. A total of 10 systems reviewed and were otherwise negative. Past Medical & Surgical Medical Problems: (1) Acute respiratory failure with hypoxia (2) Dysphagia (3) Esophageal cancer Family History Cancer Social History Smoking Status: Current Some Day Smoker Alcohol Use: none Drug Use: none Occupation Status: other Current/Historical Medications Scheduled Albuterol (Ventolin), 2 PUFFS INH TID Aspirin (Aspirin Ec), 81 MG PO QAM Atorvastatin (Lipitor), 10 MG PO QAM Carvedilol (Coreg), 6.25 MG PO BID Neomycin-Bacitracin Zn-Polymyx (Triple Antibiotic), 1 APPLN TOP DIRECTED Ondansetron Hcl (Zofran), 8 MG PO TID Pantoprazole (Protonix), 40 MG PO BID Terazosin Hcl (Hytrin), 2 MG PO QPM [Resource Nutritional], 1 BOX PO WM Scheduled PRN Acetaminophen (Acetaminophen), 2 TABS PO QID PRN for Pain Acetaminophen/Codeine (Tylenol W/Codeine #3), 2 TAB PO TID PRN for Pain Ipratropium-Albuterol (Duoneb), 1 TREATMENT INH QID PRN for Shortness of Breath Nitroglycerin (Nitrostat), 0.4 MG UT PRN PRN for Chest Pain Allergies Coded Allergies: No Known Allergies (Unverified , 07/25/16) Physical Exam Vital Signs Date Time Temp Pulse Resp B/P Pulse Ox O2 Delivery O2 Flow Rate FiO2 07/25/16 18:01 98 101/54 97 Nasal Cannula 4.0 07/25/16 16:25 97 Nasal Cannula 4.0 07/25/16 16:00 38.7 129 22 114/68 87 Room Air Physical Exam GENERAL: Patient is cachectic and chronically unwell appearing and in no acute distress. HEENT: No acute trauma, normocephalic atraumatic, mucous membranes moist, no nasal congestion, no scleral icterus. NECK: No stridor, no adenopathy, no meningismus, trachea is midline. LUNGS: No dyspnea. Minimal air movement in bilateral lungs. Clear to auscultation and equal bilaterally. No wheeze, no rhonchi. CHEST: Port in right upper chest. HEART: Tachycardic rate and regular rhythm. No murmurs, rubs, gallops appreciated. ABDOMEN: Soft, nontender, bowel sounds positive, no masses appreciated, no peritonitis. BACK: No midline tenderness, no CVA tenderness EXTREMITIES: Normal motion all extremities, no cyanosis, no edema. NEUROLOGIC: Alert and oriented, no acute motor or sensory deficits, no focal weakness, cranial nerves grossly intact. SKIN: Pale, no rash, no jaundice, no diaphoresis. Medical Decision & Procedures ER Provider Diagnostic Interpretation: X ray results are stated below per my interpretation and the radiologist's interpretation. CHEST ONE VIEW PORTABLE IMPRESSION: Emphysematous change. Chronic change. No acute process. Electronically signed by: Geo Hayes M.D. 07/25/2016 4:35 PM Dictated Date/Time: 07/25/2016 4:34 PM Laboratory Results 07/25/16 16:17 Red Blood Count 3.93, Mean Corpuscular Volume 93.4, Mean Corpuscular Hemoglobin 30.0, Mean Corpuscular Hemoglobin Concent 32.2, Mean Platelet Volume 9.4, Neutrophils (%) (Auto) 86.4, Lymphocytes (%) (Auto) 4.8, Monocytes (%) (Auto) 5.6, Eosinophils (%) (Auto) 2.4, Basophils (%) (Auto) 0.8, Neutrophils # (Auto) 1.09, Lymphocytes # (Auto) 0.06, Monocytes # (Auto) 0.07, Eosinophils # (Auto) 0.03, Basophils # (Auto) 0.01 07/25/16 16:17 Test 07/25/16 16:09 07/25/16 16:17 07/25/16 16:20 Bedside Lactic Acid Venous 1.60 mmol/L (0.90-1.70) White Blood Count 1.26 K/uL (4.8-10.8) Red Blood Count 3.93 M/uL (4.7-6.1) Hemoglobin 11.8 g/dL (14.0-18.0) Hematocrit 36.7 % (42-52) Mean Corpuscular Volume 93.4 fL (80-100) Mean Corpuscular Hemoglobin 30.0 pg (25-34) Mean Corpuscular Hemoglobin Concent 32.2 g/dl (32-36) Platelet Count 158 K/uL (130-400) Mean Platelet Volume 9.4 fL (7.4-10.4) Neutrophils (%) (Auto) 86.4 % Lymphocytes (%) (Auto) 4.8 % Monocytes (%) (Auto) 5.6 % Eosinophils (%) (Auto) 2.4 % Basophils (%) (Auto) 0.8 % Neutrophils # (Auto) 1.09 K/uL (1.4-6.5) Lymphocytes # (Auto) 0.06 K/uL (1.2-3.4) Monocytes # (Auto) 0.07 K/uL (0.11-0.59) Eosinophils # (Auto) 0.03 K/uL (0-0.5) Basophils # (Auto) 0.01 K/uL (0-0.2) RDW Standard Deviation 49.7 fL (36.4-46.3) RDW Coefficient of Variation 14.8 % (11.5-14.5) Immature Granulocyte % (Auto) 0.0 % Immature Granulocyte # (Auto) 0.00 K/uL (0.00-0.02) Anion Gap 7.0 mmol/L (3-11) Estimated GFR () 99.2 Estimated GFR (Non- 85.6 BUN/Creatinine Ratio 19.2 (10-20) Calcium Level 8.4 mg/dl (8.5-10.1) Total Creatine Kinase 49 U/L (39-308) Creatine Kinase MB 0.6 ng/ml (0.5-3.6) Creatine Kinase MB Ratio 1.2 (0-3.0) Troponin I < 0.015 ng/ml (0-0.045) Influenza Type A Antigen Neg for Influ A (NEG) Influenza Type B Antigen Neg for Influ B (NEG) Laboratory results as reviewed by me. Medications Administered Medications (Trade) Dose Ordered Sig/Parris Route Start Time Stop Time Status Last Admin Dose Admin Sodium Chloride (Nss 1000ml) 1,000 ml @ 999 mls/hr Q1H1M STAT IV 07/25/16 15:42 07/25/16 16:42 DC 07/25/16 16:34 999 MLS/HR Acetaminophen (Tylenol Tab) 1,000 mg NOW STAT PO 07/25/16 16:16 07/25/16 16:17 DC 07/25/16 16:34 1,000 MG Piperacillin Sod/ Tazobactam Sod 4.5 gm 4.5 gm NOW STAT IV 07/25/16 16:44 07/25/16 16:45 DC 07/25/16 16:53 4.5 GM Vancomycin HCl 2000 mg/Sodium Chloride 540 ml @ 200 mls/hr UD IV 07/25/16 16:45 07/27/16 16:44 07/25/16 18:07 200 MLS/HR Sodium Chloride (Nss 1000ml) 1,000 ml @ 999 mls/hr Q1H1M STAT IV 07/25/16 17:12 07/25/16 18:12 DC 07/25/16 17:12 999 MLS/HR ECG Indication: SOB/dyspnea Rate (beats per minute): 117 Rhythm: sinus tachycardia Findings: ST depression (mild in lateral), no ectopy, other (no STEMI) ED Course 1539: The patient was evaluated in room B9. A complete history and physical exam was performed. 1542: Ordered Sodium Chloride 1000 ml @ 999 mls/hr IV 1615: I reassessed the patient. He is stable and resting comfortably. 1616: Ordered Tylenol Tab 1000 mg PO 1644: Ordered Zosyn 4.5 gm IV 1645: Ordered Vancomycin HCl 2000 mg/Sodium Chloride 540 ml @ 200 mls/hr IV 1647: Upon reevaluation, the patient is still resting comfortably. Discussed results and treatment plan with the patient. He verbalized understanding and agreement with the treatment plan. The patient will be evaluated for further management. 165: Discussed the patient's case with Dr. Diony FOSTER. The patient will be evaluated for further treatment and disposition. 1712: Ordered Sodium Chloride 1000 ml @ 999 mls/hr IV Medical Decision Differential: Infectious, Reactive Airway Disease, Pneumonia, Pneumothorax, COPD , CHF, ACS, Pulmonary Embolism, MSK, GI, Dissection, amongst other etiologies entertained. 71 yr old male with esophageal cancer on chemo and radiation. Arrives febrile with hypoxia and tachycardia. Improved with NC O2. No significant wheezing on arrival. CXR clear though he also appears dehydrated. 2 L NSS bolus ordered. Empiric abx as febrile neutropenia. Suspect this is underlying pneumonia though no clear evidence of this on CXR. POC lactic wnl, normal mental status and not hypotensive thus not septic shock. Tachy likely dehydration and febrile related. Will clearly need to come in for further evaluation and treatment. Consults Time Called: 1654 Consulting Physician: Dr. Diony FOSTER Returned Call: 1656 Discussed the patient's case with Dr. Diony FOSTER. The patient will be evaluated for further treatment and disposition. Impression Primary Impression: Respiratory infection Additional Impressions: Pneumonia Neutropenia Sepsis Scribe Attestation The scribe's documentation has been prepared under my direction and personally reviewed by me in its entirety. I confirm that the note above accurately reflects all work, treatment, procedures, and medical decision making performed by me. Departure Information Dispostion Being Evaluated By Hospitalist Maci Mock M.D. (PCP) Patient Instructions My [facility] Problem Qualifiers Additional Impressions: Pneumonia Pneumonia type: due to unspecified organism Laterality: unspecified laterality Lung location: unspecified part of lung Qualified Codes: J18.9 - Pneumonia, unspecified organism Neutropenia Neutropenia type: unspecified Qualified Codes: D70.9 - Neutropenia, unspecified Sepsis Sepsis type: sepsis due to unspecified organism Qualified Codes: A41.9 - Sepsis, unspecified organism
--- NOTE | 2016-07-25 17:55 | History and Physical ---
History & Physical Date & Time of Service: Jul 25, 2016 at 17:39 Chief Complaint: Sob,Dizzy, Nausea Fr [facility] Primary Care Physician: Maci Tai M.D. History of Present Illness Source: patient, hospital records 71 yo male who resides at [facility], sent to the ED due to fever, tachycardia and hypoxia. 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 Staging has shown that it is stage III, no known distant metastasis. He elected to undergo chemo and radiation under direction of Dr. Crowe and Dr. Perez. He has been going through treatment for 4-5 weeks now. Says he is tolerating pretty well, has occasional nausea and vomiting with chemotherapy and states that his chest hurts from radiation. He has an esophageal stent placed at [facility] and his swallowing has improved. Today he reports that he has a productive cough but this is normal for him. He did vomit 4 times earlier today, did not choke or cough afterwards. He says he does not feel short of breath despite requiring some oxygen. In the ED he was febrile, tachycardic, hypoxic. CXR showed some scarring but no infiltrate. WBC low at 1.2 and BMP was normal. LA normal at 1.6. He was given IV fluid bolus and started on IV antibiotics and admission requested. 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, stage III GERD HTN Arthritis COPD Hyperlipidemia Tobacco abuse Family History Cancer - mother age 52 from breast cancer - father does not know any HX - 2 living brothers not sure ages and not sure health HX - 1 brother not sure age from leukemia 2 daughters both healthy - 1 grandmother of breast cancer Social History Smoking Status: Current Some Day Smoker Drug Use: none Housing status: other Occupational Status: other Allergies Coded Allergies: No Known Allergies (Unverified , 07/25/16) Home Medications Scheduled Albuterol (Ventolin), 2 PUFFS INH TID Aspirin (Aspirin Ec), 81 MG PO QAM Atorvastatin (Lipitor), 10 MG PO QAM Neomycin-Bacitracin Zn-Polymyx (Triple Antibiotic), 1 APPLN TOP DIRECTED Ondansetron Hcl (Zofran), 8 MG PO TID Pantoprazole (Protonix), 40 MG PO BID Terazosin Hcl (Hytrin), 2 MG PO QPM [Resource Nutritional], 1 BOX PO WM Scheduled PRN Acetaminophen (Acetaminophen), 2 TABS PO QID PRN for Pain Acetaminophen/Codeine (Tylenol W/Codeine #3), 2 TAB PO TID PRN for Pain Ipratropium-Albuterol (Duoneb), 1 TREATMENT INH QID PRN for Shortness of Breath Nitroglycerin (Nitrostat), 0.4 MG UT PRN PRN for Chest Pain Review of Systems Constitutional: + fatigue, + fever, + sweats, + weakness, No chills, No problem reported, No weight loss Eyes: No diplopia, No discharge, No eye pain, No problem reported, No redness, No worsening of vision ENT: No dental problems, No hearing loss, No nasal symptoms, No problem reported, No sore throat, No tinnitus, No trouble swallowing, No unusual epistaxis Respiratory: + cough, + dyspnea on exertion, + sputum, No dyspnea at rest, No hemoptysis, No shortness of breath, No wheezing Cardiovascular: + chest pain, No PND, No claudication, No edema, No orthopnea, No palpitations Abdomen: + nausea, + vomiting, No GI bleeding, No constipation, No diarrhea, No pain, No problem reported Musculoskeletal: No calf pain, No joint pain, No muscle pain, No problem reported, No swelling Genitourinary - Male: No dysuria, No hematuria, No urinary frequency, No urinary urgency Neurologic: No balance problems, No memory loss, No numbness/tingling, No paralysis, No problem reported, No vertigo, No weakness Psychiatric: No anhedonism, No anxiety, No depression symptoms, No insomnia, No problem reported, No substance abuse Endocrine: No excessive thirst, No excessive urination, No fatigue, No problem reported Hematologic / Lymphatic: No abnormal bleeding/bruising, No clotting problems, No night sweats, No problem reported, No swollen lymph nodes Integumentary: No bleeding, No color change, No itch, No new/changing skin lesions, No problem reported, No rash Allergic / Immunologic: No environmental allergies, No food allergies, No frequent infections, No hives, No pet sensitivities, No poor healing, No problem reported, No prolonged convalescence, No seasonal allergies Physical Exam Vital Signs Date Time Temp Pulse Resp B/P Pulse Ox O2 Delivery O2 Flow Rate FiO2 07/25/16 16:25 97 Nasal Cannula 4.0 07/25/16 16:00 38.7 129 22 114/68 87 Room Air General Appearance: no apparent distress, + thin Head: normocephalic, atraumatic Eyes: normal inspection, EOMI, sclerae normal ENT: normal ENT inspection, hearing grossly normal, pharynx normal Neck: supple, no adenopathy, no JVD, trachea midline Respiratory/Chest: no respiratory distress, no accessory muscle use, + decreased breath sounds, + crackles (bibasilar), + pertinent finding (chest tender, sternum, from radiation) Cardiovascular: no edema, no gallop, no JVD, no murmur, normal peripheral pulses, + tachycardia Abdomen/GI: normal bowel sounds, non tender, soft, no organomegaly Back: normal inspection, no CVA tenderness, no muscle spasm, normal range of motion Extremities/Musculoskelatal: normal inspection, no calf tenderness, normal capillary refill, no pedal edema, normal range of motion, pelvis stable 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, no motor/sensory deficits, alert, normal mood/affect, normal reflexes, oriented x 3 Skin: normal color, warm/dry, no rash Diagnostics Laboratory Results Results Past 24 Hours Test 07/25/16 16:09 07/25/16 16:17 07/25/16 16:20 Range/Units Bedside Lactic Acid Venous 1.60 0.90-1.70 mmol/L White Blood Count 1.26 4.8-10.8 K/uL Red Blood Count 3.93 4.7-6.1 M/uL Hemoglobin 11.8 14.0-18.0 g/dL Hematocrit 36.7 42-52 % Mean Corpuscular Volume 93.4 80-100 fL Mean Corpuscular Hemoglobin 30.0 25-34 pg Mean Corpuscular Hemoglobin Concent 32.2 32-36 g/dl Platelet Count 158 130-400 K/uL Mean Platelet Volume 9.4 7.4-10.4 fL Neutrophils (%) (Auto) 86.4 % Lymphocytes (%) (Auto) 4.8 % Monocytes (%) (Auto) 5.6 % Eosinophils (%) (Auto) 2.4 % Basophils (%) (Auto) 0.8 % Neutrophils # (Auto) 1.09 1.4-6.5 K/uL Lymphocytes # (Auto) 0.06 1.2-3.4 K/uL Monocytes # (Auto) 0.07 0.11-0.59 K/uL Eosinophils # (Auto) 0.03 0-0.5 K/uL Basophils # (Auto) 0.01 0-0.2 K/uL RDW Standard Deviation 49.7 36.4-46.3 fL RDW Coefficient of Variation 14.8 11.5-14.5 % Immature Granulocyte % (Auto) 0.0 % Immature Granulocyte # (Auto) 0.00 0.00-0.02 K/uL Sodium Level 136 136-145 mmol/L Potassium Level 4.9 3.5-5.1 mmol/L Chloride Level 102 98-107 mmol/L Carbon Dioxide Level 27 21-32 mmol/L Anion Gap 7.0 3-11 mmol/L Blood Urea Nitrogen 17 7-18 mg/dl Creatinine 0.90 0.60-1.40 mg/dl Estimated GFR () 99.2 Estimated GFR (Non- 85.6 BUN/Creatinine Ratio 19.2 10-20 Random Glucose 154 70-99 mg/dl Calcium Level 8.4 8.5-10.1 mg/dl Total Creatine Kinase 49 39-308 U/L Creatine Kinase MB 0.6 0.5-3.6 ng/ml Creatine Kinase MB Ratio 1.2 0-3.0 Troponin I < 0.015 0-0.045 ng/ml Influenza Type A Antigen Neg for Influ A NEG Influenza Type B Antigen Neg for Influ B NEG Microbiology Results 07/25/16 Blood Culture, Received Pending 07/25/16 Blood Culture, Received Pending Diagnostic Radiology CXR - scarring, no infiltrates EKG sinus tachycardia Impression Assessment and Plan 71 yo male with esophageal cancer undergoing chemo and radiation, here with sepsis, possible pneumonia - Sepsis: evident from low WBC, tachycardia, fever, likely source is pulmonary vomiting earlier today, may have aspirated Zosyn, Levaquin, check MRSA swab and if positive start Vancomycin IV fluids at 100cc/hr follow blood cultures check UA and urine culture with tachycardia and h/o cancer, check CTA chest to r/o PE as cause of these symptoms - Leukopenia secondary to chemo: consult hematology/oncology - GERD: continue Protonix BID - COPD: no wheezing, continue nebulizers, no need for steroids - Tobacco abuse: nicotine - Esophageal cancer: currently getting daily radiation, as long as he is stable he should be able to continue - DVT prophylaxis: Lovenox Level of Care Telemetry Resuscitation Status FULL RESUSCITATION VTE Prophylaxis VTE Risk Assessment Done? Y/N: Yes Risk Level: High Given or contraindicated: Enoxaparin (Lovenox)SQ Additional Copies To Maci Tai M.D.; Mandeep Crowe D.O.; Veeral. Perez MD; [facility]
[2016-07-25] MEDS ORDERED: OPTIRAY 320 IV PRN (18:30)
--- NOTE | 2016-07-25 19:53 | DIAGNOSTIC IMAGING REPORT ---
CHEST CTA for PULMONARY ARTERIES CT DOSE: 325.23 mGy.cm HISTORY: Chest PA chest pain dyspnea TECHNIQUE: Multiaxial CT images of the chest were performed following the intravenous administration of contrast to evaluate the pulmonary arteries. Maximal intensity projection images were also obtained. COMPARISON STUDY: 02/17/2016 FINDINGS: Pulmonary arterial vasculature enhances appropriately. Emphysematous change with mildly progressive parenchymal fibrosis compared to the prior study. Moderate mediastinal and hilar adenopathy. Interval placement of a soft tissue filled esophageal stent. Esophageal wall thickening throughout. IMPRESSION: 1. Study is negative for pulmonary embolus 2. Emphysematous change is slightly progressive parenchymal infiltrative change compared to the prior study. 3. Fluid/debris filled esophagus with evidence for soft tissue occluded distal esophageal stent. Electronically signed by: Geo Hayes M.D. 07/25/2016 7:51 PM Dictated Date/Time: 07/25/2016 7:47 PM
[2016-07-25 20:20] VITALS: BP 117/59; PULSE 114; TEMP 37.9; O2SAT 90; Ht 182.9 cm; Wt 71.3 kg
[2016-07-25] MEDS ORDERED: PATIENT'S HEIGHT AND/OR WEIGHT NEEDED SCH (20:30)
[2016-07-25 20:49] LABS: URINE APPEARANCE CLEAR (CLEAR); URINE BILIRUBIN NEG (NEG); URINE COLOR YELLOW; URINE NITRITE NEG (NEG); URINE PH 6.5 (4.5-7.5); URINE SPECIFIC GRAVITY 1.012 (1.000-1.030); UROBILINOGEN NEG (NEG)
[2016-07-25 20:53] LABS: MANUAL MICROSCOPIC REQUIRED? NO; REVIEW REQ? NO
[2016-07-25] MEDS ORDERED: IBUPROFEN 200 MG TAB PO STA (21:08)
[2016-07-25 21:10] VITALS: PULSE 109; O2SAT 92
[2016-07-25] MEDS: ALBUT/IPRATROP 3MG/0.5MG NEB 3 ML VIAL INH SCH (21:10)
[2016-07-25] MEDS: SODIUM CHLORIDE 0.9% 1000ML 1,000 ML IV SCH (21:27)
[2016-07-25] MEDS: LEVOFLOXACIN / D5W 750 MG in PREMIXED IN D5W 150 ML IV SCH (21:28)
[2016-07-25] MEDS: ACETAMINOPHEN 325 MG TAB PO PRN (21:29)
[2016-07-25] MEDS: PANTOprazole SOD 40 MG TAB PO SCH (21:30)
[2016-07-25] MEDS: PIPERACILL/TAZOBAC IV 3.375 GM in DEXTROSE 5% 100ML 100 ML IV SCH (21:30)
[2016-07-25] MEDS: CARVEDILOL 6.25 MG TAB PO SCH (21:31)
[2016-07-25] MEDS ORDERED: PIPERACILL/TAZOBAC CONSULT ACTIVE PRN (22:00)
[2016-07-25] MEDS ORDERED: ACETAMINOPHEN/CODEINE 300/30MG TAB PO PRN (22:45)
[2016-07-26] VITALS (13 sets, daily range): BP systolic 84–128; BP diastolic 47–74; PULSE 84–121; TEMP 36.3–39.5; O2SAT 85–98
[2016-07-26] MEDS: ACETAMINOPHEN/CODEINE 120/12MG 5ML UDP PO PRN ×4 (01:21→20:24)
[2016-07-26 06:14] LABS: INR 1.1 (0.9-1.1); PROTHROMBIN TIME (PATIENT) 11.9 SECONDS (9.0-12.0)
[2016-07-26 06:15] LABS: HEMATOCRIT 31.1 % (42-52); MEAN CELL VOLUME 93.4 fL (80-100); MEAN CORPUSCULAR HEMOGLOBIN 30.6 pg (25-34); MEAN CORPUSCULAR HGB CONC 32.8 g/dl (32-36); MEAN PLATELET VOLUME 8.9 fL (7.4-10.4); PLATELET COUNT 122 K/uL (130-400); RED BLOOD COUNT 3.33 M/uL (4.7-6.1); WHITE BLOOD COUNT 1.33 K/uL (4.8-10.8)
[2016-07-26] MEDS: PIPERACILL/TAZOBAC IV 3.375 GM in DEXTROSE 5% 100ML 100 ML IV SCH ×3 (06:24→21:59)
[2016-07-26] MEDS: SODIUM CHLORIDE 0.9% 1000ML 1,000 ML IV SCH ×3 (06:24→22:00)
[2016-07-26 06:37] LABS: BUN/CREATININE RATIO 13.7 (10-20); CALCIUM 7.9 mg/dl (8.5-10.1); CREATININE 0.75 mg/dl (0.60-1.40); MAGNESIUM 2.2 mg/dl (1.8-2.4)
[2016-07-26 06:41] LABS: COMPLETE YES; EOSINOPHIL % 2.7 %; LYMPH ABS # 0.05 K/uL (1.2-3.4); LYMPHOCYTE % 3.5 %; META ABS # 0.01 K/uL (0-0); METAMYELOCYTE % 0.9 %; NEUTROPHILS % 87.6 %
[2016-07-26] MEDS: ALBUT/IPRATROP 3MG/0.5MG NEB 3 ML VIAL INH SCH ×4 (07:07→19:21)
[2016-07-26] MEDS: ATORVASTATIN 10 MG TAB PO SCH (08:26)
[2016-07-26] MEDS: CARVEDILOL 6.25 MG TAB PO SCH ×2 (08:26→20:25)
[2016-07-26] MEDS: ASPIRIN 81 MG ECTAB PO SCH (08:27)
[2016-07-26] MEDS: PANTOprazole SOD 40 MG TAB PO SCH ×2 (08:28→20:25)
[2016-07-26] MEDS: ENOXAPARIN 40 MG/0.4 ML SYR SC SCH (08:28)
--- NOTE | 2016-07-26 08:28 | ONCOLOGY CONSULTATION ---
DATE OF CONSULTATION: 07/26/2016 DATE OF CONSULTATION: 07/26/2016. REASON FOR CONSULTATION: Adverse effects from chemoradiation. HISTORY OF PRESENT ILLNESS: Mr. Patel is a 71-year-old gentleman who is currently incarcerated at [facility] sent to the Emergency Department due to fever, hypoxia, and tachycardia. The patient is currently under my care receiving combined modality therapy for distal esophageal cancer diagnosed in March 2016. He last received carboplatin and paclitaxel last Saturday and had been doing relatively well. He began to experience right-sided chest pain with occasional nausea and vomiting; however, after developing a low grade fever was decided to have him admitted. Ariel again was diagnosed back in March 2016 after developing dysphagia. He was initially evaluated at [facility], underwent EGD revealing a partially obstructing distal esophageal tumor which was biopsied and confirmed to be a poorly differentiated adenocarcinoma. Esophageal stent was placed which did initially result in improvement in dysphagia. Again, he was last seen in the outpatient clinic on 07/13/2016. He has been started on broad-spectrum antimicrobials and receiving IV hydration. PAST MEDICAL HISTORY: Significant for distal esophageal cancer stage IIIa T3N1M0, GERD, hypertension, osteoarthritis, COPD, hyperlipidemia, and tobacco abuse. PAST SURGICAL HISTORY: Negative. MEDICATIONS: Prior to admission include albuterol inhaler by nebulizer q.i.d. p.r.n., aspirin 81 mg p.o. daily, atorvastatin 10 mg p.o. every day, carvedilol 6.25 mg b.i.d., nitroglycerin 0.4 mg sublingual p.r.n., Protonix 40 mg p.o. b.i.d., terazosin 2 mg p.o. at bedtime, Ventolin inhaler p.o. t.i.d. ALLERGIES: No known allergies. SOCIAL HISTORY: Currently confined at [facility]. Positive for cigarette smoking 56-pack year history, now smokes about 3 cigarettes per week. Positive for prior alcohol. FAMILY HISTORY: Mother secondary to natural causes. Father secondary to coal worker's pneumoconiosis. He is originally from [facility] with 2 years of [employer] service. REVIEW OF SYSTEMS: Positive for low grade fever, no chills or sweats. He has had associated weight loss, but actually during treatment has increased p.o. intake and weight has stabilized. SKIN: No rashes or lesions. No history of dermatoses. HEAD, EYES, EARS, NOSE, AND THROAT: Negative for headaches, lightheadedness or dizziness. No visual or hearing deficits. No sinus symptoms. Positive for sore throat. Positive for dysphagia preceding diagnosis improved with placement of esophageal stent. LYMPH: No history of lymphoproliferative disorder. CARDIAC: No history of coronary artery disease, no angina or palpitations. PULMONARY: Negative for COPD. No shortness of breath, dyspnea or orthopnea. No cough or hemoptysis. GASTROINTESTINAL: Positive for nausea and vomiting. No current abdominal pain. No hematochezia or melena of stools reported. GENITOURINARY: Positive for enlarged prostate. No current hematuria, dysuria, urinary incontinence. PSYCHIATRIC: Negative for anxiety, depression or psychoses. ENDOCRINE: Negative for diabetes or thyroid disease. NEUROLOGIC: Negative for seizure, stroke, or migraine headache. HEMATOLOGIC: Positive for treatment induced cytopenias. PHYSICAL EXAMINATION: GENERAL: Very pleasant gentleman, 71 years of age, awake, alert and appropriate, in no acute distress. VITAL SIGNS: Temperature 36.9, pulse 90, respirations 18, blood pressure 96/50. SKIN: Without rash or lesion, no petechiae, ecchymosis or rash otherwise. HEAD, EYES, EARS, NOSE, AND THROAT: Head is atraumatic and normocephalic. EYES: PERRLA, EOMI. Sclerae nonicteric. No conjunctival injection. Nares patent without rhinorrhea or discharge. Throat is clear. Tongue is midline. No evidence of thrush. NECK: Supple. LYMPH: No cervical, supraclavicular, axillary palpable nodes. HEART: Regular rate and rhythm. No clicks, rubs, murmurs or gallops. LUNGS: Clear to auscultation bilaterally. ABDOMEN: Soft, nontender, nondistended, without palpable hepatosplenomegaly. EXTREMITIES: No calf tenderness or swelling. No clubbing, cyanosis or edema. NEUROLOGICALLY: He is grossly intact. LABORATORY DATA: WBC count 1330, hemoglobin 10.2, platelet count 122,000. Sodium 141, potassium 4.0, chloride 108, carbon dioxide 26, BUN 10, creatinine 0.75. RADIOGRAPHIC DATA: Chest x-ray reveals emphysematous change. CTA of the chest fluid/debris filled esophagus with evidence of soft tissue occluded distal esophageal stent. IMPRESSION: 1. Treatment induced cytopenias. 2. Radiation-induced esophagitis. 3. Leukopenia. 4. Anemia. 5. Thrombocytopenia. PLAN: Mr. Patel is a 71-year-old assisted inmate currently under my care with distal esophageal carcinoma. He had been receiving weekly carboplatin and paclitaxel in unison with radiation therapy. He was seen last Saturday and appeared to be doing well. Over the past couple of days developed low grade fever with dysphagia. He was admitted to the hospitalist service and has been started on broad-spectrum antimicrobials. Blood and urine cultures are completed and results pending. Based on his current white count he is not technically neutropenic (ANC below 800). Nonetheless, I suspect most of his symptomatology is secondary to ongoing treatment. Will need to consider dose reduction and discuss with radiation therapy when to resume treatment. I agree with supportive care administered at present. I have nothing further to add. I do not believe he requires granulocyte colony stimulating growth factor which is relatively contraindicated in patients receiving radiation therapy. With rest his peripheral counts should recover spontaneously. Thank you very much for allowing us to participate in his care. If you have any questions or concerns, feel free to contact me at any time. MTDD
--- NOTE | 2016-07-26 09:17 | Family Medicine Progress Note ---
Progress Note Date of Service Jul 26, 2016. Subjective Pt evaluation today including: conversation w/ patient, physical exam, chart review, lab review, review of studies, conversation w/ in home sales consultant (Dr Crowe), review of inpatient medication list Pain: 0 Voiding: no voiding problems, no incontinence Patient feels well this morning. He managed to eat breakfast this morning including a piece of toast. He does note occasionally some food getting stuck and feeling a pain over his chest as well as occasionally coughing up food that did not go down. he reports his medications have been staying down. Constitutional: No chills, No fever Respiratory: No cough, No shortness of breath Cardiovascular: No chest pain Abdomen: No GI bleeding, No constipation, No diarrhea, No nausea, No pain, No vomiting Musculoskeletal: No calf pain Heme: No abnormal bleeding/bruising All Other Systems: Reviewed and Negative Medications Current Inpatient Medications Medications (Trade) Dose Ordered Sig/Parris Route Start Time Stop Time Status Last Admin Dose Admin Enoxaparin Sodium 40 mg 40 mg Q24H SC 07/26/16 09:00 08/25/16 08:59 07/26/16 08:28 40 MG Sodium Chloride (Nss 1000ml) 1,000 ml @ 100 mls/hr Q10H IV 07/25/16 20:00 08/24/16 19:59 07/26/16 06:24 100 MLS/HR Acetaminophen (Tylenol Tab) 650 mg Q4H PRN PO 07/25/16 17:45 08/24/16 17:44 07/25/16 21:29 650 MG Ondansetron HCl 4 mg 4 mg Q6H PRN IV 07/25/16 17:45 08/24/16 17:44 Piperacillin Sod/ Tazobactam Sod 3.375 gm/Dextrose 115 ml @ 28 mls/hr Q8H IV 07/25/16 22:00 08/01/16 21:59 07/26/16 06:24 28 MLS/HR Levofloxacin/Prmx (Levaquin / D5W/ Premixed D5W) 150 ml @ 100 mls/hr Q24H IV 07/25/16 21:00 08/01/16 20:59 07/25/16 21:28 100 MLS/HR Albuterol/ Ipratropium (Duoneb) 3 ml QIDR INH 07/25/16 20:00 08/24/16 19:59 07/26/16 07:07 3 ML Aspirin (Ecotrin Tab) 81 mg QAM PO 07/26/16 09:00 08/25/16 08:59 07/26/16 08:27 81 MG Atorvastatin Calcium (Lipitor Tab) 10 mg QAM PO 07/26/16 09:00 08/25/16 08:59 07/26/16 08:26 10 MG Carvedilol (Coreg Tab) 6.25 mg BID PO 07/25/16 21:00 08/24/16 20:59 07/26/16 08:26 6.25 MG Pantoprazole Sodium (Protonix Tab) 40 mg BID PO 07/25/16 21:00 08/24/16 20:59 07/26/16 08:28 40 MG Terazosin HCl (Hytrin Cap) 2 mg QPM PO 07/25/16 21:00 08/24/16 20:59 07/25/16 21:31 2 MG Ioversol (Optiray 320) 100 ml UD PRN IV 07/25/16 18:30 07/29/16 18:29 Piperacillin Sod/ Tazobactam Sod (Consult) 1 ea UD PRN N/A 07/25/16 22:00 08/24/16 21:59 Acetaminophen/ Codeine Phosphate 10 ml 10 ml Q4H PRN PO 07/25/16 22:45 08/24/16 22:44 07/26/16 06:45 10 ML Sodium Chloride (Nss 1000ml) 1,000 ml @ 999 mls/hr Q1H1M IV 07/26/16 09:15 08/25/16 09:14 UNV Objective Vital Signs Date Time Temp Pulse Resp B/P Pulse Ox O2 Delivery O2 Flow Rate FiO2 07/26/16 08:53 36.3 94 24 84/47 93 Nasal Cannula 2.0 07/26/16 07:09 97 18 93 Nasal Cannula 4.0 07/26/16 04:05 Nasal Cannula 2.0 07/26/16 04:00 36.9 90 18 96/50 93 Room Air 07/26/16 01:00 98 Nasal Cannula 2.0 07/26/16 00:34 37.1 84 18 95/51 98 Nasal Cannula 2.0 07/25/16 21:10 109 18 92 Nasal Cannula 4.0 07/25/16 20:20 37.9 114 20 117/59 90 Room Air 07/25/16 19:00 80 109/56 97 Nasal Cannula 4.0 07/25/16 18:01 98 101/54 97 Nasal Cannula 4.0 07/25/16 16:25 97 Nasal Cannula 4.0 07/25/16 16:00 38.7 129 22 114/68 87 Room Air Physical Exam General Appearance: WD/WN, no apparent distress Respiratory/Chest: lungs clear, normal breath sounds, no respiratory distress, no accessory muscle use Cardiovascular: regular rate, rhythm, no murmur Abdomen: normal bowel sounds, non tender, soft Extremities: no calf tenderness, normal capillary refill Neurologic/Psychiatric: veterinary medicine doctor II-XII nml as tested, no motor/sensory deficits, alert, oriented x 3 Skin: normal color, warm/dry, no rash Laboratory Results 07/26/16 05:25 Red Blood Count 3.33, Mean Corpuscular Volume 93.4, Mean Corpuscular Hemoglobin 30.6, Mean Corpuscular Hemoglobin Concent 32.8, Mean Platelet Volume 8.9 07/26/16 05:25 Test 07/25/16 16:09 07/25/16 16:17 07/25/16 16:20 07/25/16 20:10 Bedside Lactic Acid Venous 1.60 mmol/L (0.90-1.70) Immature Granulocyte % (Auto) 0.0 % White Blood Count 1.26 K/uL (4.8-10.8) Red Blood Count 3.93 M/uL (4.7-6.1) Hemoglobin 11.8 g/dL (14.0-18.0) Hematocrit 36.7 % (42-52) Mean Corpuscular Volume 93.4 fL (80-100) Mean Corpuscular Hemoglobin 30.0 pg (25-34) Mean Corpuscular Hemoglobin Concent 32.2 g/dl (32-36) Platelet Count 158 K/uL (130-400) Mean Platelet Volume 9.4 fL (7.4-10.4) Neutrophils (%) (Auto) 86.4 % Lymphocytes (%) (Auto) 4.8 % Monocytes (%) (Auto) 5.6 % Eosinophils (%) (Auto) 2.4 % Basophils (%) (Auto) 0.8 % Neutrophils # (Auto) 1.09 K/uL (1.4-6.5) Lymphocytes # (Auto) 0.06 K/uL (1.2-3.4) Monocytes # (Auto) 0.07 K/uL (0.11-0.59) Eosinophils # (Auto) 0.03 K/uL (0-0.5) Basophils # (Auto) 0.01 K/uL (0-0.2) Immature Granulocyte # (Auto) 0.00 K/uL (0.00-0.02) Total Creatine Kinase 49 U/L (39-308) Creatine Kinase MB 0.6 ng/ml (0.5-3.6) Creatine Kinase MB Ratio 1.2 (0-3.0) Troponin I < 0.015 ng/ml (0-0.045) Influenza Type A Antigen Neg for Influ A (NEG) Influenza Type B Antigen Neg for Influ B (NEG) Urine Color YELLOW Urine Appearance CLEAR (CLEAR) Urine pH 6.5 (4.5-7.5) Urine Specific [place] 1.012 (1.000-1.030) Urine Protein NEG (NEG) Urine Glucose (UA) NEG (NEG) Urine Ketones NEG (NEG) Urine Occult Blood NEG (NEG) Urine Nitrite NEG (NEG) Urine Bilirubin NEG (NEG) Urine Urobilinogen NEG (NEG) Urine Leukocyte Esterase NEG (NEG) Test 07/26/16 05:25 White Blood Count 1.33 K/uL (4.8-10.8) Red Blood Count 3.33 M/uL (4.7-6.1) Hemoglobin 10.2 g/dL (14.0-18.0) Hematocrit 31.1 % (42-52) Mean Corpuscular Volume 93.4 fL (80-100) Mean Corpuscular Hemoglobin 30.6 pg (25-34) Mean Corpuscular Hemoglobin Concent 32.8 g/dl (32-36) Platelet Count 122 K/uL (130-400) Mean Platelet Volume 8.9 fL (7.4-10.4) RDW Standard Deviation 49.7 fL (36.4-46.3) RDW Coefficient of Variation 14.9 % (11.5-14.5) Neutrophils % (Manual) 87.6 % Lymphocytes % (Manual) 3.5 % Monocytes % (Manual) 5.3 % Eosinophils % (Manual) 2.7 % Metamyelocytes % 0.9 % Neutrophils # (Manual) 1.17 K/uL (1.4-6.5) Total Absolute Neutrophils 1.17 K/uL (1.4-6.5) Lymphocytes # (Manual) 0.05 K/uL (1.2-3.4) Total Absolute Lymphocytes 0.05 K/uL (1.2-3.4) Monocytes # (Manual) 0.07 K/uL (0.11-0.59) Eosinophils # (Manual) 0.04 K/uL (0-0.5) Metamyelocytes # 0.01 K/uL (0-0) Red Blood Cell Morphology Unremarkable Prothrombin Time 11.9 SECONDS (9.0-12.0) Prothromb Time International Ratio 1.1 (0.9-1.1) Anion Gap 7.0 mmol/L (3-11) Est Creatinine Clear Calc Drug Dose 91.9 ml/min Estimated GFR () 107.0 Estimated GFR (Non- 92.3 BUN/Creatinine Ratio 13.7 (10-20) Calcium Level 7.9 mg/dl (8.5-10.1) Magnesium Level 2.2 mg/dl (1.8-2.4) Date/Time Source Procedure Growth Status 07/25/16 20:10 Nasal MRSA DNA Surveillance Screen - Final Specimen Negative for MRSA by DNA Probe Complete Assessment and Plan 71 yo male with esophageal cancer undergoing chemo and radiation, here with sepsis, possible pneumonia Sepsis vs. SIRS (from radiation) evident from low WBC, tachycardia, fever, likely source is pulmonary from previous vomiting unclear definitive source therefore if blood cultures after 48 hours are negative we will stop Hypotension - give fluid bolus now - IV fluids at 100cc/hr Esophageal cancer with complete occlusion on CT - Full liquid diet - upper GI series Leukopenia secondary to chemo - appreciate oncology consult, no need for g-csf GERD: continue Protonix BID COPD: no wheezing, continue nebulizers, no need for steroids Tobacco abuse - nicotine VTE prophylaxis - Lovenox Code - Full Disposition - continue on telemetry. consider step down if hypotension and tachycardia improve without further fevers Resident Physician Supervision Note: I interviewed and examined the patient. Discussed with Dr. To and agree with findings and plan as documented in the note. Any exceptions or clarifications are listed here: None Documented By: Yosef Castro feeling pretty good. no dysphagia no sob. ros otherwise negative except for as above vitals noted nad breathing unlabored no accessory muscles, no pallor or icterus labs and studies reviewed, d/w heme/onc and rads/onc appearance of sepsis -more likely reactive w malignancy and treatment than true infection -continue abx into tomorrow and if ongoing clear stability can proablby cautiously hold abx -CRP and procalcitonin to allow to trend esophageal cancer -CT appearance of occlusion different than clinical picture; check barium swallow for clarification DVT proph -lovenox Resident Tracking Resident Involvement: Resident Care Provided Care Provided: Adult Hospital Medicine
[2016-07-26] MEDS ORDERED: SODIUM CHLORIDE 0.9% 1000ML 1,000 ML IV ONE (10:00)
--- NOTE | 2016-07-26 15:18 | DIAGNOSTIC IMAGING REPORT ---
GI SERIES W/O KUB CLINICAL HISTORY: esophageal ca. And stent, ?obstruction in esophagusabnormal CT exam COMPARISON STUDY: None FLUOROSCOPY TIME: 1 minute. FINDINGS: Patient initiates swallowing function well. There is a distal esophageal stent. The stent does not opacify well on the initial component of the study. Images in delayed fashion with that of a moderate mixture show suboptimal passage of contrast via the stent. There is no evidence for complete occlusion, although there is evidence for intraluminal narrowing. This is also seen in the distal aspect of the stent. Remainder the stomach is unremarkable. IMPRESSION: Intraluminal narrowing of the patient's distal esophageal stent with moderate mucosal irregularity at its proximal as well as distal aspect. No evidence for complete occlusion. Electronically signed by: Geo Hayes M.D. 07/26/2016 3:16 PM Dictated Date/Time: 07/26/2016 3:06 PM
[2016-07-26] MEDS: ONDANSETRON INJ 2 MG/ML 2 ML VIAL IV PRN (15:33)
[2016-07-26] MEDS: BOOST BREEZE NUTRITION DRINK 1 BOX PO SCH (17:17)
[2016-07-26] MEDS: MoRPHine SULFATE 2 MG/ML CARP IV PRN ×2 (17:52→22:00)
[2016-07-26] MEDS ORDERED: NURSING VERBAL MED ORDER ONE (19:00)
[2016-07-26] MEDS ORDERED: POLYETHYLENE (MIRALAX) 17 GM PACK PO PRN (19:30)
[2016-07-26] MEDS: LEVOFLOXACIN / D5W 750 MG in PREMIXED IN D5W 150 ML IV SCH (20:23)
[2016-07-27] VITALS (12 sets, daily range): BP systolic 103–118; BP diastolic 59–66; PULSE 90–114; TEMP 37.4–37.9; O2SAT 91–96
[2016-07-27] MEDS: SODIUM CHLORIDE 0.9% 1000ML 1,000 ML IV SCH ×2 (00:58→09:27)
[2016-07-27] MEDS: PIPERACILL/TAZOBAC IV 3.375 GM in DEXTROSE 5% 100ML 100 ML IV SCH ×3 (05:31→22:22)
[2016-07-27] MEDS: ONDANSETRON INJ 2 MG/ML 2 ML VIAL IV PRN (05:34)
[2016-07-27 06:10] LABS: BASO % 0.6 %; BASO ABS # 0.01 K/uL (0-0.2); COMPLETE YES; EOS % 0.6 %; HEMATOCRIT 28.2 % (42-52); IG% 0.6 %; LYMPH % 9.6 %; LYMPH ABS # 0.17 K/uL (1.2-3.4); MEAN CELL VOLUME 93.1 fL (80-100); MEAN CORPUSCULAR HGB CONC 34.4 g/dl (32-36); MEAN PLATELET VOLUME 8.8 fL (7.4-10.4); MONO % 10.7 %; NEUT % 77.9 %; PLATELET COUNT 114 K/uL (130-400); RED BLOOD COUNT 3.03 M/uL (4.7-6.1); WHITE BLOOD COUNT 1.78 K/uL (4.8-10.8)
[2016-07-27 06:46] LABS: ALB/GLOB RATIO 0.9 (0.9-2); BUN/CREATININE RATIO 9.2 (10-20); CALCIUM 7.8 mg/dl (8.5-10.1); CREATININE 0.64 mg/dl (0.60-1.40); POTASSIUM 3.8 mmol/L (3.5-5.1)
[2016-07-27 06:49] LABS: C-REACTIVE PROTEIN 12.8 mg/dl (0-0.29)
[2016-07-27] MEDS: ALBUT/IPRATROP 3MG/0.5MG NEB 3 ML VIAL INH SCH ×4 (07:02→19:33)
[2016-07-27] MEDS: ASPIRIN 81 MG ECTAB PO SCH (07:36)
[2016-07-27] MEDS: ATORVASTATIN 10 MG TAB PO SCH (07:36)
[2016-07-27] MEDS: CARVEDILOL 6.25 MG TAB PO SCH ×2 (07:37→19:54)
[2016-07-27] MEDS: PANTOprazole SOD 40 MG TAB PO SCH ×2 (07:37→19:54)
[2016-07-27] MEDS: CEROVITE ADV FORMULA TAB PO SCH (07:37)
[2016-07-27] MEDS: ENOXAPARIN 40 MG/0.4 ML SYR SC SCH (07:37)
[2016-07-27] MEDS: BOOST BREEZE NUTRITION DRINK 1 BOX PO SCH ×2 (07:39→17:00)
--- NOTE | 2016-07-27 08:14 | HEME/ONC PROGRESS NOTE ---
DATE: 07/27/2016 DIAGNOSES: 1. Treatment-induced cytopenias. 2. Radiation-induced esophagitis. 3. Leukopenia. 4. Anemia. 5. Thrombocytopenia. HOSPITAL COURSE: Mr. Patel is a 71-year-old incarcerated gentleman who was sent to the Emergency Department due to low-grade fever, hypoxia and tachycardia. He had been receiving weekly paclitaxel and carboplatin in conjunction with radiation therapy. Apparently, he began to experience nonspecific chest pain with occasional nausea and vomiting with low-grade fever. Blood cultures today report gram-positive cocci. He continues to experience some dysphagia and GI series shows suboptimal passage of contrast. Nursing reports no issues overnight. PHYSICAL EXAMINATION: GENERAL: He is in no acute distress. VITAL SIGNS: Temperature 37.8, pulse 93, respirations 18, blood pressure 118/66, O2 sat 96% on 3 liters of oxygen. SKIN: Without rash or lesion. HEENT: Oral mucosa without erythema or ulceration. HEART: Regular rate and rhythm. LUNGS: Expiratory wheezes heard diffusely. ABDOMEN: Soft, nontender, nondistended. EXTREMITIES: No clubbing, cyanosis or edema. NEUROLOGIC: Grossly intact. LABORATORY DATA: WBC count 1780, hemoglobin 9.7, platelet count 114,000. Sodium 138, potassium 3.8, chloride 107, carbon dioxide 24, BUN 6, creatinine 0.64. IMPRESSION: 1. Gram-positive bacteremia. 2. Treatment-induced cytopenias. 3. Treatment-induced esophagitis. PLAN: Mr. Patel was seen and examined at bedside today. He continues to make minimal progress. He is complaining of mid esophageal discomfort and associated dysphagia. A GI series confirms partial obstruction. Blood cultures are reporting gram-positive cocci and would recommend initiating vancomycin as I suspect this probably attributes to Staph aureus. Continue IV hydration, encourage p.o. intake. His cell counts are not worsening. He remains non-neutropenic. No further intervention in this regard. We will continue to follow him periodically during his hospital stay. Obviously, based on his current clinical condition, he cannot receive further chemo and radiation until fully recovered.
[2016-07-27] MEDS: MoRPHine SULFATE 2 MG/ML CARP IV PRN ×2 (09:26→21:23)
--- NOTE | 2016-07-27 12:18 | Gastrointestinal Consultation ---
Gastrointestinal Consultation Date of Consultation: Jul 27, 2016 Attending Physician: Alin To Consulting Physician: Eloy Brewer Reason for Consultation: Hx of esophageal ca, ? food bolus, odynophagia History of Present Illness Patient is a 71 year old male inmate currently admitted for symptoms of SOB, nausea, sepsis workup, 1 out of 2 blood cx grew gram positive cocci. Currently on Zosyn, Levaquin, he is neutropenic WBC 1.7. He has a hx of esophageal ca ( adenocarcinoma) diagnosed in March 2016. Previously undergoing chemo and XRT. He had an esophageal stent placement by Dr. Fraser in May. He reported having productive cough, and n/v during admission. He also c/o abd pain but when he gestured to site it's on his xiphoid process, not even on epigastric area. He had CT chest/thorax which showed fluid/debris filled esophagus concerning for stent occlusion. Yesterday had UGI series which showed slow but passed barium through stent thus no complete occlusion, there's narrowing of the lumen and proximal/distal areas of mucosal irregularity. Pt reports to me that he hasn't had any more nausea, vomiting but is coughing up productive mucus. He denies any odynophagia. He has been tolerating soft regular consistency diet yesterday morning w/o painful swallowing, chocking, or coughing up of food. He had been placed on liquid diet since his UGI series was completed and reported no problem w swallowing liquids. Last PO intake this AM at breakfast around 7:30a. Past Medical/Surgical History Medical Problems: (1) Neutropenia Status: Acute (2) Pneumonia Status: Acute (3) Respiratory infection Status: Acute (4) Sepsis Status: Acute (5) Weight loss, unintentional Status: Acute Past Medical History: See above, also GERD, HTN, arthritis, COPD, hyperlipidemia, tobacco abuse. Family History Cancer Social History Smoking Status: Former Smoker Alcohol Use: none Drug Use: none Occupation Status: other (inmate at [employer]) Allergies Coded Allergies: No Known Allergies (Unverified , 07/25/16) Current Medications Home Meds and Scripts Medications Dose Route/Sig Max Daily Dose Days Date Category Tylenol W/Codeine #3 (Acetaminophen/Codeine Phosphate) 300 Mg/30 Mg Tab 2 Tab PO TID PRN 07/25/16 Reported [Resource Nutritional] 1 Box PO WM 07/25/16 Reported Zofran (Ondansetron HCl) 8 Mg Tab 8 Mg PO TID 07/25/16 Reported Triple Antibiotic (Neomycin-Bacitracin Zn-Polymyx) 1 Oin Oin 1 Appln TOP DIRECTED 06/15/16 Reported Protonix (Pantoprazole Sodium) 40 Mg Tab 40 Mg PO BID 05/16/16 Reported Duoneb (Ipratropium-Albuterol) 3 Ml Nebu 1 Treatment INH QID PRN 02/16/16 Reported Nitrostat (Nitroglycerin) 0.4 Mg Tab 0.4 Mg UT PRN PRN 02/16/16 Reported Acetaminophen 325 Mg Tab 2 Tabs PO QID PRN 02/16/16 Reported Ventolin (Albuterol Sulfate) 4 Mg Tab 2 Puffs INH TID 02/16/16 Reported Hytrin (Terazosin HCl) 2 Mg Cap 2 Mg PO QPM 02/16/16 Reported Coreg (Carvedilol) 6.25 Mg Tab 6.25 Mg PO BID 02/16/16 Reported Lipitor (Atorvastatin Calcium) 10 Mg Tab 10 Mg PO QAM 02/16/16 Reported Aspirin Ec (Aspirin) 81 Mg Tab 81 Mg PO QAM 02/16/16 Reported Review of Systems Constitutional: No chills, No fever ENT: No pain on swallowing, No trouble swallowing Respiratory: + cough, + shortness of breath, + sputum Cardiac: No chest pain, No edema Abdomen: No nausea, No pain, No vomiting Physical Exam Date Time Temp Pulse Resp B/P Pulse Ox O2 Delivery O2 Flow Rate FiO2 07/27/16 11:30 109 18 94 Room Air 07/27/16 08:22 37.4 102 22 111/59 96 Nasal Cannula 3.0 07/27/16 08:00 Room Air 07/27/16 07:02 114 18 94 Room Air 07/27/16 04:10 37.8 93 18 118/66 96 Nasal Cannula 3.0 07/27/16 04:00 94 Nasal Cannula 3.0 07/26/16 23:59 94 Nasal Cannula 3.0 07/26/16 23:49 37.2 95 18 108/58 94 Nasal Cannula 3.0 07/26/16 20:11 37.2 108 18 99/55 91 Nasal Cannula 3.0 Humidified Oxygen 07/26/16 20:00 Nasal Cannula 2.0 07/26/16 19:21 104 18 90 Room Air 07/26/16 16:00 Nasal Cannula 2.0 07/26/16 15:28 39.5 121 20 128/74 96 Nasal Cannula 3.0 Humidified Oxygen 07/26/16 15:08 120 18 85 Room Air 07/26/16 12:29 37.4 95 16 103/57 90 General Appearance: WD/WN, no apparent distress Eyes: normal inspection, PERRL, EOMI Neck: supple, no JVD, trachea midline Respiratory/Chest: no accessory muscle use, + decreased breath sounds, + wheezing Cardiovascular: regular rate, rhythm, no gallop, no murmur Abdomen: normal bowel sounds, non tender, soft Extremities: normal inspection, no pedal edema, no calf tenderness Neurologic/Psych: alert, normal mood/affect, oriented x 3 Skin: normal color, no jaundice, no rash Laboratory Results Last 24 Hours Test 07/26/16 13:55 07/27/16 05:00 C-Reactive Protein 14.20 mg/dl 12.80 mg/dl Procalcitonin 0.80 ng/ml 0.61 ng/ml White Blood Count 1.78 K/uL Red Blood Count 3.03 M/uL Hemoglobin 9.7 g/dL Hematocrit 28.2 % Mean Corpuscular Volume 93.1 fL Mean Corpuscular Hemoglobin 32.0 pg Mean Corpuscular Hemoglobin Concent 34.4 g/dl Platelet Count 114 K/uL Mean Platelet Volume 8.8 fL Neutrophils (%) (Auto) 77.9 % Lymphocytes (%) (Auto) 9.6 % Monocytes (%) (Auto) 10.7 % Eosinophils (%) (Auto) 0.6 % Basophils (%) (Auto) 0.6 % Neutrophils # (Auto) 1.39 K/uL Lymphocytes # (Auto) 0.17 K/uL Monocytes # (Auto) 0.19 K/uL Eosinophils # (Auto) 0.01 K/uL Basophils # (Auto) 0.01 K/uL RDW Standard Deviation 50.8 fL RDW Coefficient of Variation 15.0 % Immature Granulocyte % (Auto) 0.6 % Immature Granulocyte # (Auto) 0.01 K/uL Sodium Level 138 mmol/L Potassium Level 3.8 mmol/L Chloride Level 107 mmol/L Carbon Dioxide Level 24 mmol/L Anion Gap 7.0 mmol/L Blood Urea Nitrogen 6 mg/dl Creatinine 0.64 mg/dl Est Creatinine Clear Calc Drug Dose 109.5 ml/min Estimated GFR () 114.2 Estimated GFR (Non- 98.5 BUN/Creatinine Ratio 9.2 Random Glucose 92 mg/dl Calcium Level 7.8 mg/dl Total Bilirubin 0.3 mg/dl Aspartate Amino Transf (AST/SGOT) 18 U/L Alanine Aminotransferase (ALT/SGPT) 16 U/L Alkaline Phosphatase 53 U/L Total Protein 5.4 gm/dl Albumin 2.5 gm/dl Globulin 2.9 gm/dl Albumin/Globulin Ratio 0.9 Impression Patient is a 71 year old male w hx of esophageal ca s/p esophageal stent placement in May and previously undergoing chemo & XRT, currently seen for possible stent occlusion ? food bolus. He's been able to tolerate up to soft consistency diet during this admission. Denies any more n/v, no odynophagia, coughing or chocking while eating. Reviewed results of CT chest/thorax and UGI series w Dr. Brewer - no signs of stent occlusion. Plan - No plans for endoscopic intervention at this time as stent doesn't appear to be occluded. - Will give him [place] diet; and may advance up to puree, slippery consistency. Avoid chunky solids or dry consistency foods. - Will sign off, call again if new questions or concerns arise. I have personally seen and examined the patient with SHAHLA Gallo and . Her note reflects my exam and findings. I agree with her impression and plan. No signs of stent obstruction. Continue soft/puree diet. Eloy Brewer M.D.
--- NOTE | 2016-07-27 12:49 | Family Medicine Progress Note ---
Progress Note Date of Service Jul 27, 2016. Subjective Pt evaluation today including: conversation w/ patient, physical exam, chart review, lab review, review of studies, review of inpatient medication list Had a nausea and vomiting episode last night but feels a little better this morning. No odynophagia or dysphagia with a full liquid diet (noticed only with thicker foods such as toast). Discussed resuscitation in the case his heart was to stop or he was o stop breathing would he want to be resuscitated. Constitutional: No chills, No fever All Other Systems: Reviewed and Negative Medications Current Inpatient Medications Medications (Trade) Dose Ordered Sig/Parris Route Start Time Stop Time Status Last Admin Dose Admin Enoxaparin Sodium 40 mg 40 mg Q24H SC 07/26/16 09:00 08/25/16 08:59 07/27/16 07:37 40 MG Sodium Chloride (Nss 1000ml) 1,000 ml @ 125 mls/hr Q8H IV 07/25/16 20:00 08/24/16 19:59 07/27/16 09:27 125 MLS/HR Acetaminophen (Tylenol Tab) 650 mg Q4H PRN PO 07/25/16 17:45 08/24/16 17:44 07/25/16 21:29 650 MG Ondansetron HCl 4 mg 4 mg Q6H PRN IV 07/25/16 17:45 08/24/16 17:44 07/27/16 05:34 4 MG Piperacillin Sod/ Tazobactam Sod 3.375 gm/Dextrose 115 ml @ 28 mls/hr Q8H IV 07/25/16 22:00 08/01/16 21:59 07/27/16 05:31 28 MLS/HR Levofloxacin/Prmx (Levaquin / D5W/ Premixed D5W) 150 ml @ 100 mls/hr Q24H IV 07/25/16 21:00 08/01/16 20:59 07/26/16 20:23 100 MLS/HR Albuterol/ Ipratropium (Duoneb) 3 ml QIDR INH 07/25/16 20:00 08/24/16 19:59 07/27/16 11:30 3 ML Aspirin (Ecotrin Tab) 81 mg QAM PO 07/26/16 09:00 08/25/16 08:59 07/27/16 07:36 81 MG Atorvastatin Calcium (Lipitor Tab) 10 mg QAM PO 07/26/16 09:00 08/25/16 08:59 07/27/16 07:36 10 MG Carvedilol (Coreg Tab) 6.25 mg BID PO 07/25/16 21:00 08/24/16 20:59 07/27/16 07:37 6.25 MG Pantoprazole Sodium (Protonix Tab) 40 mg BID PO 07/25/16 21:00 08/24/16 20:59 07/27/16 07:37 40 MG Terazosin HCl (Hytrin Cap) 2 mg QPM PO 07/25/16 21:00 08/24/16 20:59 07/26/16 20:25 2 MG Ioversol (Optiray 320) 100 ml UD PRN IV 07/25/16 18:30 07/29/16 18:29 Piperacillin Sod/ Tazobactam Sod (Consult) 1 ea UD PRN N/A 07/25/16 22:00 08/24/16 21:59 Acetaminophen/ Codeine Phosphate (Tylenol w/ Codeine Soln) 10 ml Q4H PRN PO 07/25/16 22:45 08/24/16 22:44 07/26/16 20:24 10 ML Enteral Nutritional Formula (Boost Breeze Nutritional Drink) 1 box [id number] PO 07/26/16 17:00 08/25/16 16:59 07/26/16 17:17 1 BOX Morphine Sulfate (MoRPHine SULFATE INJ) 1 mg Q4 PRN IV 07/26/16 17:30 08/09/16 17:29 07/27/16 09:26 1 MG Polyethylene (Miralax Powder Packet) 17 gm DAILY PRN PO 07/26/16 19:30 08/25/16 19:29 Heparin Sodium (Porcine) (Heparin 100 Unit/ml 5ml Flush) 5 ml PRN PRN IV 07/27/16 00:45 08/26/16 00:44 Multivitamins/ Minerals (Multivitamin W/ Minerals Tab) 1 tab QAM PO 07/27/16 09:00 08/26/16 08:59 07/27/16 07:37 1 TAB Objective Vital Signs Date Time Temp Pulse Resp B/P Pulse Ox O2 Delivery O2 Flow Rate FiO2 07/27/16 12:16 37.8 101 24 103/61 91 Nasal Cannula 3.0 07/27/16 11:30 109 18 94 Room Air 07/27/16 08:22 37.4 102 22 111/59 96 Nasal Cannula 3.0 07/27/16 08:00 Room Air 07/27/16 07:02 114 18 94 Room Air 07/27/16 04:10 37.8 93 18 118/66 96 Nasal Cannula 3.0 07/27/16 04:00 94 Nasal Cannula 3.0 07/26/16 23:59 94 Nasal Cannula 3.0 07/26/16 23:49 37.2 95 18 108/58 94 Nasal Cannula 3.0 07/26/16 20:11 37.2 108 18 99/55 91 Nasal Cannula 3.0 Humidified Oxygen 07/26/16 20:00 Nasal Cannula 2.0 07/26/16 19:21 104 18 90 Room Air 07/26/16 16:00 Nasal Cannula 2.0 07/26/16 15:28 39.5 121 20 128/74 96 Nasal Cannula 3.0 Humidified Oxygen 07/26/16 15:08 120 18 85 Room Air Physical Exam General Appearance: no apparent distress, + thin Eyes: normal inspection (pupils equal), EOMI ENT: pharynx normal Respiratory/Chest: lungs clear (anteriorly), no respiratory distress, no accessory muscle use, + rhonchi (b/l on back) Cardiovascular: regular rate, rhythm, no murmur Abdomen: normal bowel sounds, non tender, soft Extremities: no pedal edema, no calf tenderness, normal capillary refill Neurologic/Psychiatric: no motor/sensory deficits, alert, oriented x 3 Skin: normal color, warm/dry, no rash Laboratory Results 07/27/16 05:00 Red Blood Count 3.03, Mean Corpuscular Volume 93.1, Mean Corpuscular Hemoglobin 32.0, Mean Corpuscular Hemoglobin Concent 34.4, Mean Platelet Volume 8.8, Neutrophils (%) (Auto) 77.9, Lymphocytes (%) (Auto) 9.6, Monocytes (%) (Auto) 10.7, Eosinophils (%) (Auto) 0.6, Basophils (%) (Auto) 0.6, Neutrophils # (Auto ) 1.39, Lymphocytes # (Auto) 0.17, Monocytes # (Auto) 0.19, Eosinophils # (Auto ) 0.01, Basophils # (Auto) 0.01 07/27/16 05:00 Test 07/27/16 05:00 White Blood Count 1.78 K/uL (4.8-10.8) Red Blood Count 3.03 M/uL (4.7-6.1) Hemoglobin 9.7 g/dL (14.0-18.0) Hematocrit 28.2 % (42-52) Mean Corpuscular Volume 93.1 fL (80-100) Mean Corpuscular Hemoglobin 32.0 pg (25-34) Mean Corpuscular Hemoglobin Concent 34.4 g/dl (32-36) Platelet Count 114 K/uL (130-400) Mean Platelet Volume 8.8 fL (7.4-10.4) Neutrophils (%) (Auto) 77.9 % Lymphocytes (%) (Auto) 9.6 % Monocytes (%) (Auto) 10.7 % Eosinophils (%) (Auto) 0.6 % Basophils (%) (Auto) 0.6 % Neutrophils # (Auto) 1.39 K/uL (1.4-6.5) Lymphocytes # (Auto) 0.17 K/uL (1.2-3.4) Monocytes # (Auto) 0.19 K/uL (0.11-0.59) Eosinophils # (Auto) 0.01 K/uL (0-0.5) Basophils # (Auto) 0.01 K/uL (0-0.2) RDW Standard Deviation 50.8 fL (36.4-46.3) RDW Coefficient of Variation 15.0 % (11.5-14.5) Immature Granulocyte % (Auto) 0.6 % Immature Granulocyte # (Auto) 0.01 K/uL (0.00-0.02) Anion Gap 7.0 mmol/L (3-11) Est Creatinine Clear Calc Drug Dose 109.5 ml/min Estimated GFR () 114.2 Estimated GFR (Non- 98.5 BUN/Creatinine Ratio 9.2 (10-20) Calcium Level 7.8 mg/dl (8.5-10.1) Total Bilirubin 0.3 mg/dl (0.2-1) Aspartate Amino Transf (AST/SGOT) 18 U/L (15-37) Alanine Aminotransferase (ALT/SGPT) 16 U/L (12-78) Alkaline Phosphatase 53 U/L (45-117) C-Reactive Protein 12.80 mg/dl (0-0.29) Total Protein 5.4 gm/dl (6.4-8.2) Albumin 2.5 gm/dl (3.4-5.0) Globulin 2.9 gm/dl (2.5-4.0) Albumin/Globulin Ratio 0.9 (0.9-2) Procalcitonin 0.61 ng/ml (0-0.5) Assessment and Plan 71 yo male with esophageal cancer undergoing chemo and radiation, here with sepsis, possible pneumonia Sepsis vs. SIRS (from radiation) evident from low WBC, tachycardia, fever, likely source is pulmonary from previous vomiting blood culture 1/2 shows gram positive cocci - will await final culture and keep on antibiotics currently especially given recurrent fever Esophageal cancer s/p stent with partial occlusion - Continue full liquid diet as he appears to be doing well with this. Continue supplemental Boost drinks - Consult GI regarding possible food bolus vs. esophageal ca. Leukopenia secondary to chemo - appreciate oncology consult, no need for g-csf GERD: continue Protonix BID COPD: no wheezing, continue nebulizers, no need for steroids Tobacco abuse - nicotine VTE prophylaxis - Lovenox Code - Full Disposition - continue on telemetry Resident Physician Supervision Note: I interviewed and examined the patient. Discussed with Dr. To and agree with findings and plan as documented in the note. Any exceptions or clarifications are listed here: None Documented By: Yosef Matthew feeling better had a fever again yesterday still no dysphagia ros otherwise negative except for as above joseph noted nad breathing unlabored no pallor or icterus (borderline) neutropenic fever -improving -w positive blood culture (?true vs false waiting on further growth) and more importantly w recurrent fevers - more than likely true infection -continue broad abx pending further improvement and further growth on cultures esophageal cancer/stenting/concern on occlusion -liquid _--> slipper diet -clinically doing better than he appears he should radiographically DVT proph -lovenox Resident Tracking Resident Involvement: Resident Care Provided Care Provided: Adult Hospital Medicine
[2016-07-27] MEDS: LEVOFLOXACIN / D5W 750 MG in PREMIXED IN D5W 150 ML IV SCH (19:55)
[2016-07-28] VITALS (13 sets, daily range): BP systolic 92–114; BP diastolic 43–69; PULSE 73–98; TEMP 36.3–37.3; O2SAT 92–98
[2016-07-28] MEDS: SODIUM CHLORIDE 0.9% 1000ML 1,000 ML IV SCH ×4 (02:20→23:26)
[2016-07-28] MEDS: PIPERACILL/TAZOBAC IV 3.375 GM in DEXTROSE 5% 100ML 100 ML IV SCH ×3 (05:56→22:21)
[2016-07-28 06:39] LABS: CREATININE 0.64 mg/dl (0.60-1.40)
[2016-07-28] MEDS: ALBUT/IPRATROP 3MG/0.5MG NEB 3 ML VIAL INH SCH ×4 (07:21→20:01)
[2016-07-28] MEDS: CARVEDILOL 6.25 MG TAB PO SCH ×2 (08:11→19:38)
[2016-07-28] MEDS: BOOST BREEZE NUTRITION DRINK 1 BOX PO SCH ×2 (08:11→16:10)
[2016-07-28] MEDS: MoRPHine SULFATE 2 MG/ML CARP IV PRN ×3 (08:12→23:21)
[2016-07-28] MEDS: ACETAMINOPHEN/CODEINE 120/12MG 5ML UDP PO PRN (08:13)
[2016-07-28] MEDS: ATORVASTATIN 10 MG TAB PO SCH (08:14)
[2016-07-28] MEDS: CEROVITE ADV FORMULA TAB PO SCH (08:14)
[2016-07-28] MEDS: PANTOprazole SOD 40 MG TAB PO SCH ×2 (08:14→19:38)
[2016-07-28] MEDS: ASPIRIN 81 MG ECTAB PO SCH (08:14)
[2016-07-28] MEDS: ENOXAPARIN 40 MG/0.4 ML SYR SC SCH (08:15)
[2016-07-28] MEDS: ONDANSETRON INJ 2 MG/ML 2 ML VIAL IV PRN (11:32)
--- NOTE | 2016-07-28 14:00 | Family Medicine Progress Note ---
Progress Note Date of Service Jul 28, 2016. Subjective Pt evaluation today including: conversation w/ patient, conversation w/ family , physical exam, chart review, lab review, conversation w/ bank consultant, review of inpatient medication list Ariel had no acute events overnight. He denied any fevers, night sweats or chills. He is tolerating a liquid diet adequately w/out having any nausea, vomiting, odynophagia or abdominal pain. He still has a productive cough and he is having regular bowel movements. All Other Systems: Reviewed and Negative Medications Current Inpatient Medications Medications (Trade) Dose Ordered Sig/Parris Route Start Time Stop Time Status Last Admin Dose Admin Enoxaparin Sodium 40 mg 40 mg Q24H SC 07/26/16 09:00 08/25/16 08:59 07/28/16 08:15 40 MG Sodium Chloride (Nss 1000ml) 1,000 ml @ 125 mls/hr Q8H IV 07/25/16 20:00 08/24/16 19:59 07/28/16 02:20 125 MLS/HR Acetaminophen (Tylenol Tab) 650 mg Q4H PRN PO 07/25/16 17:45 08/24/16 17:44 07/25/16 21:29 650 MG Ondansetron HCl 4 mg 4 mg Q6H PRN IV 07/25/16 17:45 08/24/16 17:44 07/28/16 11:32 4 MG Piperacillin Sod/ Tazobactam Sod 3.375 gm/Dextrose 115 ml @ 28 mls/hr Q8H IV 07/25/16 22:00 08/01/16 21:59 07/28/16 05:56 28 MLS/HR Levofloxacin/Prmx (Levaquin / D5W/ Premixed D5W) 150 ml @ 100 mls/hr Q24H IV 07/25/16 21:00 08/01/16 20:59 07/27/16 19:55 100 MLS/HR Albuterol/ Ipratropium (Duoneb) 3 ml QIDR INH 07/25/16 20:00 08/24/16 19:59 07/28/16 11:41 3 ML Aspirin (Ecotrin Tab) 81 mg QAM PO 07/26/16 09:00 08/25/16 08:59 07/28/16 08:14 81 MG Atorvastatin Calcium (Lipitor Tab) 10 mg QAM PO 07/26/16 09:00 08/25/16 08:59 07/28/16 08:14 10 MG Carvedilol (Coreg Tab) 6.25 mg BID PO 07/25/16 21:00 08/24/16 20:59 07/27/16 19:54 6.25 MG Pantoprazole Sodium (Protonix Tab) 40 mg BID PO 07/25/16 21:00 08/24/16 20:59 07/28/16 08:14 40 MG Terazosin HCl (Hytrin Cap) 2 mg QPM PO 07/25/16 21:00 08/24/16 20:59 07/27/16 19:53 2 MG Ioversol (Optiray 320) 100 ml UD PRN IV 07/25/16 18:30 07/29/16 18:29 Piperacillin Sod/ Tazobactam Sod (Consult) 1 ea UD PRN N/A 07/25/16 22:00 08/24/16 21:59 Acetaminophen/ Codeine Phosphate (Tylenol w/ Codeine Soln) 10 ml Q4H PRN PO 07/25/16 22:45 08/24/16 22:44 07/28/16 08:13 10 ML Enteral Nutritional Formula (Boost Breeze Nutritional Drink) 1 box BID17 PO 07/26/16 17:00 08/25/16 16:59 07/26/16 17:17 1 BOX Morphine Sulfate (MoRPHine SULFATE INJ) 1 mg Q4 PRN IV 07/26/16 17:30 08/09/16 17:29 07/28/16 08:12 1 MG Polyethylene (Miralax Powder Packet) 17 gm DAILY PRN PO 07/26/16 19:30 08/25/16 19:29 Heparin Sodium (Porcine) (Heparin 100 Unit/ml 5ml Flush) 5 ml PRN PRN IV 07/27/16 00:45 08/26/16 00:44 Multivitamins/ Minerals (Multivitamin W/ Minerals Tab) 1 tab QAM PO 07/27/16 09:00 08/26/16 08:59 07/28/16 08:14 1 TAB Objective Vital Signs Date Time Temp Pulse Resp B/P Pulse Ox O2 Delivery O2 Flow Rate FiO2 07/28/16 12:00 Nasal Cannula 3.0 07/28/16 11:41 74 18 94 Nasal Cannula 3.0 07/28/16 11:10 36.6 94 18 111/60 92 Room Air 07/28/16 08:00 Nasal Cannula 3.0 07/28/16 07:27 37.3 89 18 92/43 92 3.0 07/28/16 07:21 76 18 94 Nasal Cannula 3.0 07/28/16 04:33 36.7 91 18 114/69 93 Nasal Cannula 07/28/16 04:14 95 Nasal Cannula 3.0 07/28/16 00:16 95 Nasal Cannula 3.0 07/27/16 23:52 37.8 90 18 107/60 94 Nasal Cannula 3.0 07/27/16 20:00 95 Nasal Cannula 3.0 07/27/16 19:33 106 18 95 Nasal Cannula 3.0 07/27/16 19:20 37.9 100 18 114/63 94 Nasal Cannula 2.0 07/27/16 16:00 Room Air 07/27/16 15:25 96 18 94 Room Air 07/27/16 15:03 37.5 98 18 107/59 93 Nasal Cannula 3.0 Physical Exam General Appearance: WD/WN, no apparent distress Eyes: normal inspection, PERRL, sclerae normal ENT: hearing grossly normal, pharynx normal Neck: supple, no adenopathy, trachea midline Respiratory/Chest: no respiratory distress, no accessory muscle use, + rhonchi (heard bilaterally in the posterior lobes), + pertinent finding (chest tender at the xiphersternum) Cardiovascular: regular rate, rhythm, no murmur Abdomen: normal bowel sounds, non tender, soft Neurologic/Psychiatric: alert, normal mood/affect, oriented x 3 Skin: normal color, warm/dry, no rash Laboratory Results Results Past 24 Hours Test 07/28/16 05:44 Range/Units Creatinine 0.64 0.60-1.40 mg/dl Est Creatinine Clear Calc Drug Dose 108.1 ml/min Estimated GFR () 114.2 Estimated GFR (Non- 98.5 Assessment and Plan 71 year old male with esophageal cancer undergoing chemo and radiation here with sepsis and possible underlying pneumonia Sepsis - aspiration pneumonia most likely source due to poor esophageal function and recurrent cough - 1/2 blood culture grew gram +staph - will d/c levaquin and continue zosyn as there is no current need for double coverage Esophageal Cancer - continue full liquid diet w/ boost supplementation - patient too tired at the moment to restart chemo/radiation treatment - will likely need re-stent of esophagus vs comfort measures vs PEG placement for further stricture management - morphine and acetaminophen w/codeine for pain control GERD - protonix bid COPD - continue nebs, no wheezing currently therefore steroids not needed Tobacco - Nicotine HLD - atorvastatin - aspirin? HTN - hytrin VTE - lovenox Disposition - take off telemetry Code - full Resident Physician Supervision Note: I interviewed and examined the patient. Discussed with Dr. Tolliver and agree with findings and plan as documented in the note. Any exceptions or clarifications are listed here: None Documented By: Yosef Castro feeling better no fevers, still w postprandial pain - denies trouble eating/ pain after eating, then in the next sentence asks "why does it hurt under my breastbone?" and notes this is generally postprandial ros otherwise negative except for as above vitals noted nad breathing unlabored no pallor or icterus (borderline) neutropenic fever -continue abx, can narrow to just zosyn. probably was reflux/aspiration pneumonia as cause esophageal cancer w stenosis despite stenting and odynophagia -ongoing soft/slippery foods, GI does not feel scope warranted at this time. d/ w pt unfortunately likely to worsen - discussed possible options of attempt at repeat stenting vs PEG vs comfort care when/if this may happen again - he notes that at this time if things were to progress he'd want reattempt at stenting otherwise as above Continued [facility] stay due to: multiple IV medications needed
[2016-07-29] VITALS (11 sets, daily range): BP systolic 101–125; BP diastolic 63–75; PULSE 72–95; TEMP 36.3–36.9; O2SAT 90–97
[2016-07-29] MEDS: PIPERACILL/TAZOBAC IV 3.375 GM in DEXTROSE 5% 100ML 100 ML IV SCH ×2 (05:34→13:16)
[2016-07-29] MEDS: SODIUM CHLORIDE 0.9% 1000ML 1,000 ML IV SCH ×3 (05:36→21:35)
[2016-07-29 06:18] LABS: HEMATOCRIT 28.6 % (42-52); MEAN CELL VOLUME 93.2 fL (80-100); MEAN CORPUSCULAR HEMOGLOBIN 30.9 pg (25-34); MEAN CORPUSCULAR HGB CONC 33.2 g/dl (32-36); MEAN PLATELET VOLUME 8.8 fL (7.4-10.4); PLATELET COUNT 130 K/uL (130-400); RED BLOOD COUNT 3.07 M/uL (4.7-6.1); WHITE BLOOD COUNT 2.31 K/uL (4.8-10.8)
[2016-07-29 06:40] LABS: BASO % 0.9 %; BASO ABS # 0.02 K/uL (0-0.2); COMPLETE YES; EOS % 2.2 %; IG% 0.4 %; LYMPH % 8.7 %; MONO % 20.8 %
[2016-07-29] MEDS: ALBUT/IPRATROP 3MG/0.5MG NEB 3 ML VIAL INH SCH ×4 (07:38→19:20)
[2016-07-29] MEDS: CARVEDILOL 6.25 MG TAB PO SCH ×2 (08:00→20:08)
[2016-07-29] MEDS: ASPIRIN 81 MG ECTAB PO SCH (08:05)
[2016-07-29] MEDS: ATORVASTATIN 10 MG TAB PO SCH (08:05)
[2016-07-29] MEDS: PANTOprazole SOD 40 MG TAB PO SCH ×2 (08:05→20:08)
[2016-07-29] MEDS: CEROVITE ADV FORMULA TAB PO SCH (08:05)
[2016-07-29] MEDS: BOOST BREEZE NUTRITION DRINK 1 BOX PO SCH ×2 (08:06→17:00)
[2016-07-29] MEDS: ENOXAPARIN 40 MG/0.4 ML SYR SC SCH (08:07)
[2016-07-29] MEDS: MoRPHine SULFATE 2 MG/ML CARP IV PRN ×4 (08:13→22:05)
--- NOTE | 2016-07-29 13:55 | HEME/ONC PROGRESS NOTE ---
DATE: 07/29/2016 DIAGNOSES: 1. Treatment induced cytopenias. 2. Radiation-induced esophagitis. 3. Gram-positive bacteremia. HOSPITAL COURSE: Mr. Patel is a 70-year-old incarcerated gentleman well known to [facility] with locally advanced esophageal cancer. Over the past day or so has tolerated a liquid diet. There is question whether GI will proceed with replacing or at least maneuvering his esophageal stent for better clearance. He continues on broad spectrum antimicrobials. Blood cultures positive for coag negative Staphylococcus, identification pending. Nursing reports no overnight difficulties. PHYSICAL EXAMINATION: GENERAL: He is in no acute distress. VITAL SIGNS: Current temperature is 36.7, pulse 93, respirations 18, blood pressure 103/65. SKIN: Without rash or lesion. HEENT: Oral mucosa is dry without erythema or ulceration. NECK: Supple. HEART: Regular rate and rhythm. LUNGS: Expiratory wheezes heard scattered in all lung smith. ABDOMEN: Soft, nontender, nondistended. EXTREMITIES: No clubbing, cyanosis or edema. NEUROLOGIC: Grossly intact. LABORATORY DATA: WBC count 2310, hemoglobin 9.5, platelet count 130,000. Chemistries not done. IMPRESSION: 1. Gram-positive coag negative Staphylococcus bacteremia. 2. Locally advanced esophageal cancer. 3. Treatment induced esophagitis. 4. Partial esophageal stent obstruction. PLAN: I saw Mr. Patel again at bedside. Clinically, he seems to be a bit more brighter. He still is having issues with occasional nausea. Tolerating a liquid diet. Will await further recommendations from the GI service regarding his stent. We will make arrangements to have Mr. [facility]el seen in [facility] upon discharge. His peripheral blood counts also seemed to be improving over time. No further intervention is necessary in this regard. Thank you very much for allowing us to participate in his care.
--- NOTE | 2016-07-29 13:59 | Family Medicine Progress Note ---
Progress Note Date of Service Jul 29, 2016. Subjective Pt evaluation today including: conversation w/ patient, physical exam, chart review, lab review, review of studies, conversation w/ senior professional services consultant, review of inpatient medication list Pain: none PO Intake: able to tolerate liquid diet Voiding: no voiding problems Patient with no acute events overnight Tolerating full liquid diet. Still has chest pressure over xiphesternum and he feels as if food is getting stuck in that area. He also has an associated productive cough. Denies any odynophagia or vomiting after eating. He says that he has had chills on and off. Denies any shortness of breath, fevers or abdominal pain. Did not have a bowel movement overnight, but is still passing urine regularly. All Other Systems: Reviewed and Negative Medications Current Inpatient Medications Medications (Trade) Dose Ordered Sig/Parris Route Start Time Stop Time Status Last Admin Dose Admin Enoxaparin Sodium 40 mg 40 mg Q24H SC 07/26/16 09:00 08/25/16 08:59 07/29/16 08:07 40 MG Sodium Chloride (Nss 1000ml) 1,000 ml @ 125 mls/hr Q8H IV 07/25/16 20:00 08/24/16 19:59 07/29/16 13:16 125 MLS/HR Acetaminophen (Tylenol Tab) 650 mg Q4H PRN PO 07/25/16 17:45 08/24/16 17:44 07/25/16 21:29 650 MG Ondansetron HCl (Zofran Inj) 4 mg Q6H PRN IV 07/25/16 17:45 08/24/16 17:44 07/28/16 11:32 4 MG Albuterol/ Ipratropium (Duoneb) 3 ml QIDR INH 07/25/16 20:00 08/24/16 19:59 07/29/16 11:33 3 ML Aspirin (Ecotrin Tab) 81 mg QAM PO 07/26/16 09:00 08/25/16 08:59 07/29/16 08:05 81 MG Atorvastatin Calcium (Lipitor Tab) 10 mg QAM PO 07/26/16 09:00 08/25/16 08:59 07/29/16 08:05 10 MG Carvedilol (Coreg Tab) 6.25 mg BID PO 4/19/17 21:00 08/24/16 20:59 07/27/16 19:54 6.25 MG Pantoprazole Sodium (Protonix Tab) 40 mg BID PO 07/25/16 21:00 08/24/16 20:59 07/29/16 08:05 40 MG Terazosin HCl (Hytrin Cap) 2 mg QPM PO 07/25/16 21:00 08/24/16 20:59 07/28/16 19:39 2 MG Ioversol (Optiray 320) 100 ml UD PRN IV 07/25/16 18:30 07/29/16 18:29 Acetaminophen/ Codeine Phosphate (Tylenol w/ Codeine Soln) 10 ml Q4H PRN PO 07/25/16 22:45 08/24/16 22:44 07/28/16 08:13 10 ML Enteral Nutritional Formula (Boost Breeze Nutritional Drink) 1 box [id number] PO 07/26/16 17:00 08/25/16 16:59 07/26/16 17:17 1 BOX Morphine Sulfate (MoRPHine SULFATE INJ) 1 mg Q4 PRN IV 07/26/16 17:30 08/09/16 17:29 07/29/16 13:16 1 MG Polyethylene (Miralax Powder Packet) 17 gm DAILY PRN PO 07/26/16 19:30 08/25/16 19:29 Heparin Sodium (Porcine) (Heparin 100 Unit/ml 5ml Flush) 5 ml PRN PRN IV 07/27/16 00:45 08/26/16 00:44 Multivitamins/ Minerals (Multivitamin W/ Minerals Tab) 1 tab QAM PO 07/27/16 09:00 08/26/16 08:59 07/29/16 08:05 1 TAB Amoxicillin/ Clavulanate Potassium (Amoxicillin/ Clavulanate 600MG/ 42.9MG 5 Ml CHRISTOS) 600 mg BIDM PO 07/29/16 17:00 08/05/16 16:59 UNV Objective Vital Signs Date Time Temp Pulse Resp B/P Pulse Ox O2 Delivery O2 Flow Rate FiO2 07/29/16 11:33 89 18 96 Nasal Cannula 2.0 07/29/16 08:00 Nasal Cannula 3.0 07/29/16 07:38 72 18 97 Nasal Cannula 3.0 07/29/16 06:51 36.7 93 18 103/65 97 Nasal Cannula 3.0 07/29/16 04:07 36.9 94 96 101/63 96 Nasal Cannula 3.0 07/29/16 00:00 97 Nasal Cannula 3.0 07/28/16 22:29 36.9 92 18 106/68 97 Nasal Cannula 3.0 07/28/16 20:01 95 18 96 Nasal Cannula 3.0 07/28/16 20:00 97 Nasal Cannula 3.0 07/28/16 19:30 36.5 96 18 101/63 97 07/28/16 16:00 Nasal Cannula 3.0 07/28/16 15:52 36.3 98 18 108/68 97 Nasal Cannula 3.0 07/28/16 14:45 73 18 98 Nasal Cannula 3.0 Physical Exam General Appearance: WD/WN, no apparent distress, + thin, + pertinent finding ( patient is attached to bed with handcuffs) Eyes: normal inspection ENT: normal ENT inspection, pharynx normal Neck: supple, no adenopathy, trachea midline Respiratory/Chest: no respiratory distress, no accessory muscle use, + wheezing (bilateral wheezing throughout both lung smith) Cardiovascular: regular rate, rhythm, no JVD, no murmur Neurologic/Psychiatric: alert, normal mood/affect, oriented x 3 Laboratory Results Results Past 24 Hours Test 07/29/16 05:43 Range/Units White Blood Count 2.31 4.8-10.8 K/uL Red Blood Count 3.07 4.7-6.1 M/uL Hemoglobin 9.5 14.0-18.0 g/dL Hematocrit 28.6 42-52 % Mean Corpuscular Volume 93.2 80-100 fL Mean Corpuscular Hemoglobin 30.9 25-34 pg Mean Corpuscular Hemoglobin Concent 33.2 32-36 g/dl Platelet Count 130 130-400 K/uL Mean Platelet Volume 8.8 7.4-10.4 fL Neutrophils (%) (Auto) 67.0 % Lymphocytes (%) (Auto) 8.7 % Monocytes (%) (Auto) 20.8 % Eosinophils (%) (Auto) 2.2 % Basophils (%) (Auto) 0.9 % Neutrophils # (Auto) 1.55 1.4-6.5 K/uL Lymphocytes # (Auto) 0.20 1.2-3.4 K/uL Monocytes # (Auto) 0.48 0.11-0.59 K/uL Eosinophils # (Auto) 0.05 0-0.5 K/uL Basophils # (Auto) 0.02 0-0.2 K/uL RDW Standard Deviation 51.0 36.4-46.3 fL RDW Coefficient of Variation 15.1 11.5-14.5 % Immature Granulocyte % (Auto) 0.4 % Immature Granulocyte # (Auto) 0.01 0.00-0.02 K/uL Assessment and Plan 71 year old male with esophageal cancer undergoing chemo and radiation here with sepsis and possible underlying pneumonia Patient tolerating full liquid diet therefore will advance diet to see if he can tolerate soft and slippery foods. Most likely still having obstruction of his lower esophagus and will need restenting. It was discussed with patient as to the different option between restenting vs comfort measures vs Peg tube and it seems as if he would like to do restenting if it is needed. Patient will unlikely tolerate soft and slippery food but will try and advance diet before re -consulting GI with regards to options for restenting the patient in view of palliative measures for his esophageal adenocarcinoma. Sepsis - aspiration pneumonia most likely source due to poor esophageal function and recurrent cough - 1/2 blood culture grew gram +staph - will switch to Augmentin PO from piptazo in order to prepare for discharge Esophageal Cancer - advance diet to soft and slippery foods - patient too tired at the moment to restart chemo/radiation treatment - will likely need re-stent of esophagus for further stricture management - morphine and acetaminophen w/codeine for pain control - consult GI tomorrow for further stent management GERD - protonix bid COPD - continue nebs - started PO steroids as patient with wheezing today. 30mg bid Tobacco - Nicotine HLD - atorvastatin - aspirin? HTN - hytrin VTE - lovenox Disposition - d/c pending tolerance of advancement of diet and restenting Code - full Resident Physician Supervision Note: I interviewed and examined the patient. Discussed with Dr. Tolliver and agree with findings and plan as documented in the note. Any exceptions or clarifications are listed here: None Documented By: Yosef Castro feelign OK - about the same. no new sob. ongoing substernal pain - not clearly worse after eating but pretty much always there and doesn't go away. hadn't really expressed that to GI last week ros otherwise negative except for as above vitals noted nad breathing unlabored scattered rhonchi neutropenic fever - improved. change from zosyn to augmentin (liquid) follow esophageal cancer w odynophagia - did not really express thsi to GI when they saw him last week. advance to more "real" foods but soft slippery -- if ongoing odynophagia may need re-eval and ??ability for repeat stenting? otherwise as above Continued [facility] stay due to: other
[2016-07-29] MEDS ORDERED: prednisoLONE SYRUP 15 MG/5 ML PO ONE (14:29)
[2016-07-29] MEDS ORDERED: AMOXICILLIN/CLAVULANATE POTAS 600 MG/5 ML UDP PO SCH (17:00)
[2016-07-29] MEDS: AMOXICILLIN/CLAVULANATE SUSP 400 MG/5 ML PO SCH (17:07)
[2016-07-29] MEDS: prednisoLONE SYRUP 15 MG/5 ML PO SCH (20:08)
[2016-07-29] MEDS: ACETAMINOPHEN/CODEINE 120/12MG 5ML UDP PO PRN (20:18)
[2016-07-30] VITALS (13 sets, daily range): BP systolic 110–136; BP diastolic 68–85; PULSE 89–112; TEMP 36–36.6; O2SAT 90–93
[2016-07-30] MEDS: ACETAMINOPHEN/CODEINE 120/12MG 5ML UDP PO PRN ×4 (02:00→22:58)
[2016-07-30] MEDS: SODIUM CHLORIDE 0.9% 1000ML 1,000 ML IV SCH ×2 (05:34→13:36)
[2016-07-30 06:01] LABS: BASO % 0.5 %; BASO ABS # 0.01 K/uL (0-0.2); COMPLETE YES; HEMATOCRIT 31.1 % (42-52); IG% 0.5 %; LYMPH % 10.9 %; LYMPH ABS # 0.24 K/uL (1.2-3.4); MEAN CELL VOLUME 92.6 fL (80-100); MEAN CORPUSCULAR HEMOGLOBIN 30.7 pg (25-34); MEAN CORPUSCULAR HGB CONC 33.1 g/dl (32-36); MEAN PLATELET VOLUME 8.5 fL (7.4-10.4); MONO % 5.9 %; NEUT % 82.2 %; PLATELET COUNT 137 K/uL (130-400); RED BLOOD COUNT 3.36 M/uL (4.7-6.1); WHITE BLOOD COUNT 2.21 K/uL (4.8-10.8)
[2016-07-30 06:42] LABS: BUN/CREATININE RATIO 5.7 (10-20); CALCIUM 8.1 mg/dl (8.5-10.1); CREATININE 0.68 mg/dl (0.60-1.40); POTASSIUM 4.2 mmol/L (3.5-5.1)
[2016-07-30] MEDS: ALBUT/IPRATROP 3MG/0.5MG NEB 3 ML VIAL INH SCH ×4 (07:41→19:14)
[2016-07-30] MEDS: prednisoLONE SYRUP 15 MG/5 ML PO SCH ×2 (08:05→20:35)
[2016-07-30] MEDS: CARVEDILOL 6.25 MG TAB PO SCH ×2 (08:05→20:35)
[2016-07-30] MEDS: ASPIRIN 81 MG ECTAB PO SCH (08:05)
[2016-07-30] MEDS: CEROVITE ADV FORMULA TAB PO SCH (08:06)
[2016-07-30] MEDS: ATORVASTATIN 10 MG TAB PO SCH (08:06)
[2016-07-30] MEDS: PANTOprazole SOD 40 MG TAB PO SCH ×2 (08:06→20:36)
[2016-07-30] MEDS: ENOXAPARIN 40 MG/0.4 ML SYR SC SCH (08:06)
[2016-07-30] MEDS: BOOST BREEZE NUTRITION DRINK 1 BOX PO SCH ×2 (08:07→17:00)
[2016-07-30] MEDS: AMOXICILLIN/CLAVULANATE SUSP 400 MG/5 ML PO SCH ×2 (08:16→17:12)
[2016-07-30] MEDS: ACETAMINOPHEN 325 MG TAB PO PRN (09:37)
--- NOTE | 2016-07-30 13:37 | Family Medicine Progress Note ---
Progress Note Date of Service Jul 30, 2016. Subjective Pt evaluation today including: conversation w/ patient, physical exam, chart review, lab review, review of studies, review of inpatient medication list Pain: denies pain No acute events overnight, tolerating diet (soft slippery). Patient does report some residual throat pain but reports it responds well to pain medication. Patient reports cough, sob, but no worse than baseline. He denies fevers, chills , chest pain, palpitation Constitutional: No chills, No fever Respiratory: + cough, + shortness of breath, + sputum, No hemoptysis, No wheezing Cardiovascular: No chest pain, No edema, No palpitations Abdomen: No constipation, No diarrhea, No nausea, No pain, No vomiting Male : No dysuria, No hematuria, No urinary frequency Neurologic: No numbness/tingling, No weakness Skin: No itch, No rash Medications Current Inpatient Medications Medications (Trade) Dose Ordered Sig/Parris Route Start Time Stop Time Status Last Admin Dose Admin Enoxaparin Sodium 40 mg 40 mg Q24H SC 07/26/16 09:00 08/25/16 08:59 07/30/16 08:06 40 MG Sodium Chloride (Nss 1000ml) 1,000 ml @ 125 mls/hr Q8H IV 07/25/16 20:00 08/24/16 19:59 07/30/16 05:34 125 MLS/HR Acetaminophen (Tylenol Tab) 650 mg Q4H PRN PO 07/25/16 17:45 08/24/16 17:44 07/30/16 09:37 650 MG Ondansetron HCl (Zofran Inj) 4 mg Q6H PRN IV 07/25/16 17:45 08/24/16 17:44 07/28/16 11:32 4 MG Albuterol/ Ipratropium (Duoneb) 3 ml QIDR INH 07/25/16 20:00 08/24/16 19:59 07/30/16 11:12 3 ML Aspirin (Ecotrin Tab) 81 mg QAM PO 07/26/16 09:00 08/25/16 08:59 07/30/16 08:05 81 MG Atorvastatin Calcium (Lipitor Tab) 10 mg QAM PO 07/26/16 09:00 08/25/16 08:59 07/30/16 08:06 10 MG Carvedilol (Coreg Tab) 6.25 mg BID PO 07/25/16 21:00 08/24/16 20:59 07/30/16 08:05 6.25 MG Pantoprazole Sodium (Protonix Tab) 40 mg BID PO 07/25/16 21:00 08/24/16 20:59 07/30/16 08:06 40 MG Terazosin HCl (Hytrin Cap) 2 mg QPM PO 07/25/16 21:00 08/24/16 20:59 07/29/16 20:08 2 MG Acetaminophen/ Codeine Phosphate (Tylenol w/ Codeine Soln) 10 ml Q4H PRN PO 07/25/16 22:45 08/24/16 22:44 07/30/16 06:00 10 ML Enteral Nutritional Formula (Boost Breeze Nutritional Drink) 1 box BID17 PO 07/26/16 17:00 08/25/16 16:59 07/26/16 17:17 1 BOX Morphine Sulfate (MoRPHine SULFATE INJ) 1 mg Q4 PRN IV 07/26/16 17:30 08/09/16 17:29 07/29/16 22:05 1 MG Polyethylene (Miralax Powder Packet) 17 gm DAILY PRN PO 07/26/16 19:30 08/25/16 19:29 Heparin Sodium (Porcine) (Heparin 100 Unit/ml 5ml Flush) 5 ml PRN PRN IV 07/27/16 00:45 08/26/16 00:44 Multivitamins/ Minerals (Multivitamin W/ Minerals Tab) 1 tab QAM PO 07/27/16 09:00 08/26/16 08:59 07/30/16 08:06 1 TAB Prednisolone (Prelone Syrup) 30 mg BID PO 07/29/16 20:00 08/28/16 19:59 07/30/16 08:05 30 MG Amoxicillin/ Clavulanate Potassium (Augmentin Susp) 11 ml BIDM PO 07/29/16 17:00 08/05/16 16:59 07/30/16 08:16 11 ML Objective Vital Signs Date Time Temp Pulse Resp B/P Pulse Ox O2 Delivery O2 Flow Rate FiO2 07/30/16 11:57 36.6 112 18 110/68 90 Room Air 07/30/16 11:12 89 18 93 Room Air 07/30/16 08:00 91 Room Air 07/30/16 07:41 101 18 91 Room Air 07/30/16 07:27 36.5 96 18 114/72 90 07/30/16 04:17 36.3 94 20 122/70 91 Room Air 07/30/16 00:00 Room Air 07/29/16 23:26 36.6 91 18 115/69 91 Room Air 07/29/16 20:00 Room Air 07/29/16 19:20 95 18 94 Room Air 07/29/16 19:20 36.3 94 18 115/72 90 Room Air 07/29/16 17:35 94 125/73 94 Room Air 07/29/16 16:05 92 Room Air 07/29/16 16:00 Room Air 07/29/16 15:30 36.6 94 17 110/75 97 Nasal Cannula 3.0 07/29/16 14:35 95 18 95 Nasal Cannula 1.0 Physical Exam Notes: GENERAL: alert, no distress, non-toxic EYE EXAM: normal conjunctiva, PERRL and EOM's grossly intact OROPHARYNX: no exudate, no erythema, lips, buccal mucosa, and tongue normal and mucous membranes are moist NECK: supple, no nuchal rigidity, no adenopathy, non-tender LUNGS: Warren expiratory wheeze, course breath sounds. warren HEART: no murmurs, S1 normal and S2 normal ABDOMEN: abdomen soft, non-tender, normo-active bowel sounds, no masses, no rebound or guarding. SKIN: no rashes and no bruising UPPER EXTREMITIES: upper extremities are grossly normal. LOWER EXTREMITIES: No pitting edema. NEURO EXAM: Normal sensorium, cranial nerves II-XII grossly intact, normal speech, no gross weakness of arms, no gross weakness of legs. Laboratory Results Results Past 24 Hours Test 07/30/16 05:45 Range/Units White Blood Count 2.21 4.8-10.8 K/uL Red Blood Count 3.36 4.7-6.1 M/uL Hemoglobin 10.3 14.0-18.0 g/dL Hematocrit 31.1 42-52 % Mean Corpuscular Volume 92.6 80-100 fL Mean Corpuscular Hemoglobin 30.7 25-34 pg Mean Corpuscular Hemoglobin Concent 33.1 32-36 g/dl Platelet Count 137 130-400 K/uL Mean Platelet Volume 8.5 7.4-10.4 fL Neutrophils (%) (Auto) 82.2 % Lymphocytes (%) (Auto) 10.9 % Monocytes (%) (Auto) 5.9 % Eosinophils (%) (Auto) 0.0 % Basophils (%) (Auto) 0.5 % Neutrophils # (Auto) 1.82 1.4-6.5 K/uL Lymphocytes # (Auto) 0.24 1.2-3.4 K/uL Monocytes # (Auto) 0.13 0.11-0.59 K/uL Eosinophils # (Auto) 0.00 0-0.5 K/uL Basophils # (Auto) 0.01 0-0.2 K/uL RDW Standard Deviation 49.9 36.4-46.3 fL RDW Coefficient of Variation 15.1 11.5-14.5 % Immature Granulocyte % (Auto) 0.5 % Immature Granulocyte # (Auto) 0.01 0.00-0.02 K/uL Sodium Level 143 136-145 mmol/L Potassium Level 4.2 3.5-5.1 mmol/L Chloride Level 112 98-107 mmol/L Carbon Dioxide Level 24 21-32 mmol/L Anion Gap 7.0 3-11 mmol/L Blood Urea Nitrogen 4 7-18 mg/dl Creatinine 0.68 0.60-1.40 mg/dl Est Creatinine Clear Calc Drug Dose 101.6 ml/min Estimated GFR () 111.4 Estimated GFR (Non- 96.1 BUN/Creatinine Ratio 5.7 10-20 Random Glucose 134 70-99 mg/dl Calcium Level 8.1 8.5-10.1 mg/dl Albumin 2.5 3.4-5.0 gm/dl Assessment and Plan 71 year old male w/ hx of esophageal cancer with odynophagia undergoing chemo/ radiation admitted with sepsis and in the setting of pneumonia, tolerating soft , slippery diet. Neutropenic fever, Sepsis, on chemotherapy - fever resolved, VSS, remains leukopenic 2.21<--2.31, - 1/2 blood culture grew gram +staph - Zosyn d/c'd, Augmentin started 07/29 -F/u CBC in AM - Dec'd rate of fluids to 75 cc/hr from 125 Suspected Asp. PNA - likely due to poor esophageal function in setting of hx of esoph. cancer - tolerating slippery soft diet -Per GI, Stent does not appear to be occluded (4/21), no endoscopic intervention required at this point Esophageal Cancer - Continue with soft and slippery food diet - will likely need re-stent of esophagus for further stricture management - morphine and acetaminophen w/codeine for pain control -Per Heme-ONC: [facility] GERD - protonix bid COPD -exp wheeze warren, CTA warren 91% sat - continue PRN nebs, PO steroids Tobacco - Nicotine HLD - Con't atorvastatin -Con't aspirin HTN - Con't Terazosin VTE - Continue lovenox Disposition - Code - full Resident Physician Supervision Note: I was present with Dr. Gould during the history and exam. I discussed the case with the resident and agree with the findings and plan as documented in the note. Any exceptions or clarifications are listed here: [None] Documented By: Wayne Modi Discharge planning: other (Sn[facility]) Resident Tracking Resident Involvement: Resident Care Provided Care Provided: Adult Hospital Medicine
[2016-07-30] MEDS: MoRPHine SULFATE 2 MG/ML CARP IV PRN ×2 (16:09→23:38)
[2016-07-31] MEDS: SODIUM CHLORIDE 0.9% 1000ML 1,000 ML IV SCH (00:10)
[2016-07-31 00:26] VITALS: O2SAT 93
[2016-07-31 04:05] VITALS: BP 132/76; PULSE 83; TEMP 36.5; O2SAT 94
[2016-07-31 06:19] LABS: CREATININE 0.64 mg/dl (0.60-1.40)
[2016-07-31 07:28] VITALS: BP 127/72; PULSE 91; TEMP 36.5; O2SAT 92
[2016-07-31] MEDS: BOOST BREEZE NUTRITION DRINK 1 BOX PO SCH (09:00)
[2016-07-31] MEDS: CEROVITE ADV FORMULA TAB PO SCH (09:11)
[2016-07-31] MEDS: ASPIRIN 81 MG ECTAB PO SCH (09:11)
[2016-07-31] MEDS: CARVEDILOL 6.25 MG TAB PO SCH (09:11)
[2016-07-31] MEDS: PANTOprazole SOD 40 MG TAB PO SCH (09:11)
[2016-07-31] MEDS: ATORVASTATIN 10 MG TAB PO SCH (09:11)
[2016-07-31] MEDS: prednisoLONE SYRUP 15 MG/5 ML PO SCH (09:11)
[2016-07-31] MEDS: ENOXAPARIN 40 MG/0.4 ML SYR SC SCH (09:12)
[2016-07-31] MEDS: AMOXICILLIN/CLAVULANATE SUSP 400 MG/5 ML PO SCH (09:14)
[2016-07-31] MEDS: MoRPHine SULFATE 2 MG/ML CARP IV PRN (09:15)
--- NOTE | 2016-07-31 10:59 | Discharge Instructions ---
Discharge Instructions Date of Service Jul 31, 2016. Admission Reason for Admission: Acute Respiratory Failure With Hypoxia, Pneumonia Discharge Discharge Diagnosis / Problem: Neutropenic fever, Pneumonia, Sepsis Discharge Goals Goal(s): Decrease discomfort, Improve function, Increase independence, Improve disease control, Improve nutritional status, Learn about illness, Diagnostic testing, Therapeutic intervention, Screening, Prevent Disease Progression, Specific goals Activity Recommendations Activity Limitations: resume your previous activity . Instructions / Follow-Up Instructions / Follow-Up -Please take medications a prescribed -Please follow up with [facility] outpatient -If worsening symptoms including pain not controlled my medication, fevers, Chest pain, Shortness of Breath, difficulty swallowing, coughing or vomiting blood please inform medical personnel or return to hospital for evaluation Current Hospital Diet Patient's current hospital diet: Regular Diet Discharge Diet Recommended Diet: Regular Diet Diet Texture: Mechanical Soft (ground) (slippery soft) Pending Studies Studies pending at discharge: no Medical Emergencies . Who to Call and When: Medical Emergencies: If at any time you feel your situation is an emergency, please call 911 immediately. . Non-Emergent Contact Non-Emergency issues call your: Primary Care Provider, Change Management Specialist, Oncologist Call Non-Emergent contact if: temperature is above 100.5 . . "Provider Documentation" section prepared by Pedro Gould. . VTE Core Measure Inpt VTE Proph given/why not?: Enoxaparin (Lovenox)SQ
[2016-07-31 11:00] VITALS: BP 127/72; PULSE 91; TEMP 36.5; O2SAT 92
[2016-07-31 11:24] VITALS: BP 116/69; PULSE 100; TEMP 36.4; O2SAT 94
[2016-07-31 12:00] VITALS: PULSE 98; O2SAT 91
[2016-07-31] MEDS: ALBUT/IPRATROP 3MG/0.5MG NEB 3 ML VIAL INH SCH (12:00)
[2016-07-31] MEDS ORDERED: BOOST PLUS VANILLA PO SCH ×2 (12:00)
[2016-07-31] MEDS: ACETAMINOPHEN/CODEINE 120/12MG 5ML UDP PO PRN (12:19)
[2016-07-31] MEDS ORDERED: AMOX400S2 PO (12:57)
--- NOTE | 2016-07-31 19:56 | Discharge Summary ---
Discharge Summary Date of Service Jul 31, 2016. (Pedro Gould MD) Discharge Summary Admission Date: Jul 25, 2016 at 17:38 Discharge Date: Jul 31, 2016 Discharge Disposition: Home ([facility]) Principal Diagnosis: Sepsis Problems/Secondary Diagnoses: Esophageal cancer s/p stenting Procedures: CHEST ONE VIEW PORTABLE CLINICAL HISTORY: Chest Pain pain COMPARISON STUDY: 06/12/2016 FINDINGS: Central catheter in superior vena cava. Emphysematous change. No acute infiltrate. IMPRESSION: Emphysematous change. Chronic change. No acute process. CHEST CTA for PULMONARY ARTERIES CT DOSE: 325.23 mGy.cm HISTORY: Chest PA chest pain dyspnea TECHNIQUE: Multiaxial CT images of the chest were performed following the intravenous administration of contrast to evaluate the pulmonary arteries. Maximal intensity projection images were also obtained. COMPARISON STUDY: 02/17/2016 FINDINGS: Pulmonary arterial vasculature enhances appropriately. Emphysematous change with mildly progressive parenchymal fibrosis compared to the prior study. Moderate mediastinal and hilar adenopathy. Interval placement of a soft tissue filled esophageal stent. Esophageal wall thickening throughout. IMPRESSION: 1. Study is negative for pulmonary embolus 2. Emphysematous change is slightly progressive parenchymal infiltrative change compared to the prior study. 3. Fluid/debris filled esophagus with evidence for soft tissue occluded distal esophageal stent. GI SERIES W/O KUB CLINICAL HISTORY: esophageal ca. And stent, ?obstruction in esophagusabnormal CT exam COMPARISON STUDY: None FLUOROSCOPY TIME: 1 minute. FINDINGS: Patient initiates swallowing function well. There is a distal esophageal stent. The stent does not opacify well on the initial component of the study. Images in delayed fashion with that of a moderate mixture show suboptimal passage of contrast via the stent. There is no evidence for complete occlusion, although there is evidence for intraluminal narrowing. This is also seen in the distal aspect of the stent. Remainder the stomach is unremarkable. IMPRESSION: Intraluminal narrowing of the patient's distal esophageal stent with moderate mucosal irregularity at its proximal as well as distal aspect. No evidence for complete occlusion. Consultations: Gastroenterology Hematology/Oncology (Pedro Gould MD) Medication Reconciliation New Medications: Amoxicillin & Pot Clavulanate (Amoxicillin/Clavulanate P) 1 Janet Janet 11 ML PO BIDM for 5 Days Continued Medications: Acetaminophen (Acetaminophen) 325 Mg Tab 2 TABS PO QID PRN for Pain Acetaminophen/Codeine (Tylenol W/Codeine #3) 300 Mg/30 Mg Tab 2 TAB PO TID PRN for Pain, TAB Albuterol (Ventolin) 4 Mg Tab 2 PUFFS INH TID Aspirin (Aspirin Ec) 81 Mg Tab 81 MG PO QAM Atorvastatin (Lipitor) 10 Mg Tab 10 MG PO QAM, TAB Carvedilol (Coreg) 6.25 Mg Tab 6.25 MG PO BID, TAB Ipratropium-Albuterol (Duoneb) 3 Ml Nebu 1 TREATMENT INH QID PRN for Shortness of Breath, INHA Neomycin-Bacitracin Zn-Polymyx (Triple Antibiotic) 1 Oin Oin 1 APPLN TOP DIRECTED Nitroglycerin (Nitrostat) 0.4 Mg Tab 0.4 MG UT PRN PRN for Chest Pain, BTL Ondansetron Hcl (Zofran) 8 Mg Tab 8 MG PO TID, TAB Pantoprazole (Protonix) 40 Mg Tab 40 MG PO BID, #30 TAB Terazosin Hcl (Hytrin) 2 Mg Cap 2 MG PO QPM, CAP [Resource Nutritional] () 1 BOX PO WM Discharge Exam Constitutional: No chills, No fever Respiratory: + cough, + shortness of breath, + sputum, No hemoptysis, No wheezing Cardiovascular: No chest pain, No edema, No palpitations Abdomen: No constipation, No diarrhea, No nausea, No pain, No vomiting Male : No dysuria, No hematuria, No urinary frequency Neurologic: No numbness/tingling, No weakness Skin: No itch, No rash GENERAL: alert, no distress, non-toxic EYE EXAM: normal conjunctiva, PERRL and EOM's grossly intact OROPHARYNX: no exudate, no erythema, lips, buccal mucosa, and tongue normal and mucous membranes are moist NECK: supple, no nuchal rigidity, no adenopathy, non-tender LUNGS: mild Warren expiratory wheeze, HEART: no murmurs, S1 normal and S2 normal ABDOMEN: abdomen soft, non-tender, normo-active bowel sounds, no masses, no rebound or guarding. SKIN: no rashes and no bruising UPPER EXTREMITIES: upper extremities are grossly normal. LOWER EXTREMITIES: No pitting edema. NEURO EXAM: Normal sensorium, cranial nerves II-XII grossly intact, normal speech, no gross weakness of arms, no gross weakness of legs. (Pedro Gould MD) Hospital Course This is a 71 yo M inmate from [facility] w/ hx of Esophageal Cancer s/p stenting (Dx: 03/2016) undergoing Chemotherapy and Radiation, COPD who presented to ED with fever, tachycardia, hypoxia, productive cough. He was leukopenic at 1.2, Lactic avid 1.6. He was admitted and managed for probable Sepsis , Neutropenic fever. Gastroenterology and Hematology/Oncology were consulted. Patient's leukopenia was attributed to Chemotherapy Blood cx's were positive with Gram (+) Staph. Patient was placed on broad spectrum abx ( Vancomycin, Zosyn, Levaquin) later switched to zosyn only during admission and later PO Augmentin. Source of sepsis was suspected to be due to aspiration in setting of esophageal dysfunction. During hospitalization, patient clinically improved. UGI series showed Intraluminal narrowing of the patient's distal esophageal stent with moderate mucosal irregularity at its proximal as well as distal aspect without evidence of complete occlusion. By discharge, patient was able to tolerate mechanical soft diet and did not require further intervention and re-stenting. On day of discharge 07/31, patient refused scheduled radiation treatment and was discharged on Augmentin with followup to [facility]. Total Time Spent: Less than 30 minutes This includes examination of the patient, discharge planning, medication reconciliation, and communication with other providers. (Pedro Gould MD) Resident Physician Supervision Note: I was present with Dr. Gould during the history and exam. I discussed the case with the resident and agree with the findings and plan as documented in the note. Any exceptions or clarifications are listed here: the patient has been tolerating a modified diet without problem. He declines radiation therapy today , and as such, transportation is present to take the patient back to half-way today at 1 PM. The patient will have continued care ini the [facility]; radiation therapy will be arranged for a future date. Documented By: Wayne Modi Total Time Spent: Less than 30 minutes (Wayne Modi,D.O.) Discharge Instructions Please refer to the electronic Patient Visit Report (Discharge Instructions) for additional information. (Pedro Gould MD)
[2017-02-25] MEDS ORDERED: CRG3125 PO (12:00)
[2017-02-25] MEDS ORDERED: CLC100X PO (12:00)
[2017-02-25] MEDS ORDERED: LACT10SO30 PO (12:00)
[2017-02-25] MEDS ORDERED: EMOL-19 TOP (12:00)
[2017-02-25] MEDS ORDERED: OXYC-738 PO (12:00)
[2017-02-25] MEDS ORDERED: DLC5 PO (12:00)
[2017-02-25] MEDS ORDERED: ALUMSUS21 PO (12:00)
[2017-02-25] MEDS ORDERED: MAGIC1 PO (12:00)
[2017-02-25] MEDS ORDERED: DIPH25CA5 PO (12:00)
[2017-02-25] MEDS ORDERED: VNTHFA/IN INH (12:00)
[2017-02-25] MEDS ORDERED: OXYC1TAB3 PO (12:00)
[2017-02-25] MEDS ORDERED: [UNRECOGNIZED DRUG - CODE] PO (12:01)
== END 2016-07-31 13:30 | DRG 871 ==
LOC: CANRESERV → ENRESERVTM → ENRESERVDT → EDBD 15:33 → C.EDB 15:38 → UNDOADMIN 17:38 → C.2E 17:38 → C.4E 07-28 15:41
PROVIDERS: ADMIT Internal Medicine; ATTEND Family Medicine
DX: A41.01 Sepsis due to Methicillin susceptible Staphylococcus aureus (principal); C16.0 Malignant neoplasm of cardia; J69.0 Pneumonitis due to inhalation of food and vomit; D61.811 Other drug-induced pancytopenia; Z87.891 Personal history of nicotine dependence; Z92.3 Personal history of irradiation; J44.9 Chronic obstructive pulmonary disease, unspecified; I10 Essential (primary) hypertension; E78.5 Hyperlipidemia, unspecified; T45.1X5A Adverse effect of antineoplastic and immunosuppressive drugs, initial encounter; K20.8 Other esophagitis; K22.2 Esophageal obstruction; Y92.149 Unspecified place in prison as the place of occurrence of the external cause; Y84.2 Radiological procedure and radiotherapy as the cause of abnormal reaction of the patient, or of later complication, without mention of misadventure at the time of the procedure

== ENCOUNTER → 2016-10-12 | Outpatient (CLI) | payer OTHER ==
[~2016-10-12] MED LIST changes: +ACET-749 PO; +AMOX400S2 PO; -ATOR10TA82 PO; +ATOR10TA88 PO; +ONDA8TAB6 PO; +OPTIRAY 320 IV PRN; +[UNRECOGNIZED DRUG - OTHER] PO
--- NOTE | 2016-10-12 08:33 | DIAGNOSTIC IMAGING REPORT ---
CHEST CT WITH CONTRAST CT DOSE: HISTORY: Esophageal carcinoma ESOPHAGEAL CA TECHNIQUE: Multiaxial CT images of the chest were performed following the intravenous administration of contrast. COMPARISON: 07/25/2016 FINDINGS: Emphysematous changes similar compared to the prior study. 8 mm nodular density right base unchanged from the prior exam. No evidence for new interval or progressive nodular pathology. Unchanging 3 mm nodular density right posterior gastric angle. Potential interval revision of the esophageal stent. Contrast is present within the esophagus. Proximal esophagus is somewhat distended with a mild amount of residual esophageal debris. Surrounding soft tissue is most likely unchanged in the prior exam. Thickening of the gastroesophageal junction and gastric cardial tissues is stable. The distal aspect of the stent appears to extend somewhat distal to the lower extent of the mass. Appears to been some improvement and overall soft tissue prominence within the distal aspect of the stent. Several small mediastinal nodes unaltered from the prior study to slightly diminished in prominence. No significant mediastinal mattie pathology at this time IMPRESSION: 1. Slightly improved exam. 2. Esophageal mass extending into the gastric fundal region stable to stress slightly diminished at its inferior aspect. 3. Persistent proximal esophageal distention containing a combination of contrast and debris. This indicates at least a component of partial obstructive change or functional delay. 4. Several mediastinal nodes slightly diminished in prominence in the prior study. No significant recurrent mediastinal nodes 5. Baseline emphysematous change with right basilar nodularity stable Electronically signed by: Geo Hayes M.D. 10/12/2016 8:32 AM Dictated Date/Time: 10/12/2016 8:21 AM
--- NOTE | 2016-10-12 08:45 | DIAGNOSTIC IMAGING REPORT ---
ABD/PELVIS IV CONTRAST ONLY HISTORY:71 yearsMaleESOPHAGEAL CA . This is a follow-up study. COMPARISON: CT abdomen and pelvis and CT chest 02/17/2016. TECHNIQUE: Multiple axial CT images of the abdomen and pelvis were obtained following the intravenous administration of 95 mL Optiray 320. Oral contrast was also administered. FINDINGS: There is a 7 x 7 mm noncalcified pulmonary nodule of the posterior basal segment right lower lobe, unchanged from comparison chest CT dated 02/17/2016. Mild emphysematous changes are noted at the lung bases with some dependent atelectasis. There is mild bibasilar bronchial wall thickening with areas of tree but opacity in the right middle lobe. There is no gross pneumoperitoneum. The inferior cardiac chambers are unremarkable. The liver, spleen, pancreas and adrenal glands are within normal limits. Gallbladder is partially collapsed. 2 mm nonobstructing calculus is seen within the mid pole left kidney. No hydronephrosis. Urinary bladder is unremarkable. Senescent calcifications are seen within the prostate. Patent esophageal stent is again seen extending into the proximal gastric lumen. There is new soft tissue masslike density seen involving the gastric cardia and proximal fundus measuring up to approximately 2.6 x 3.2 x 2.5 cm in AP, transverse and cranial caudal dimensions nicely seen on image 14 of the axial series which appears new from prior exam. The circumferential wall thickening of the distal esophagus appears generally unchanged. Small nonenlarged periaortic lymph node at the level of the hiatus is seen, 6 x 5 mm appears stable from comparison. No new adenopathy is identified. Soft tissues are unremarkable. No suspicious blastic or lytic bony lesions are identified to suggest metastasis. Moderate size Schmorl's node involves the superior endplate of T12, unchanged from 07/25/2016. There is no bowel obstruction. Moderate volume of formed stool is present throughout the colon which may reflect underlying constipation. There is mixed plaquing of the abdominal aorta. IMPRESSION: 1. Patent esophageal stent with unchanged circumferential wall thickening of the distal esophagus. 2. New masslike soft tissue thickening involves the proximal stomach near the cardia and esophagus measuring up to 3.2 cm which suggests progression of disease. This can be correlated with endoscopy. 3. No pathologic-appearing adenopathy of the abdomen or pelvis. No evidence of solid organ or bony metastasis. 4. Unchanged 7 mm noncalcified pulmonary nodule of the posterior basal segment right lower lobe. 5. Mild bronchial wall thickening of the lung bases with some subsegmental tree-in-bud opacities of the right middle lobe suggest mild bronchiolitis. The above report was generated using voice recognition software. It may contain grammatical, syntax or spelling errors. Electronically signed by: Juarez Kellogg 10/12/2016 8:44 AM Dictated Date/Time: 10/12/2016 8:28 AM
== END | disposition home or self-care (01) ==
LOC: C.CTS 07:28
PROVIDERS: ATTEND Family Medicine
DX: C15.9 Malignant neoplasm of esophagus, unspecified (principal); R91.8 Other nonspecific abnormal finding of lung field; Z98.890 Other specified postprocedural states; K22.9 Disease of esophagus, unspecified

== ENCOUNTER → 2016-11-05 | Outpatient (CLI) | payer OTHER ==
[~2016-11-05] MED LIST changes: -OPTIRAY 320 IV PRN
--- NOTE | 2016-11-05 13:00 | DIAGNOSTIC IMAGING REPORT ---
PET/CT CLINICAL HISTORY: 71-year-old male with history of esophageal cancer. TECHNIQUE: PET/CT was performed from the base of the skull through the pelvis following the intravenous administration of 13.8 mCi of F18-FDG. Non-contrast CT imaging was performed over the same range without breath-hold for attenuation correction of PET images and anatomic correlation, but not for primary interpretation as it is not of standard diagnostic quality. CT DOSE: 1156.3 mGy.cm. COMPARISON: Correlation made to CT of the chest, abdomen, pelvis from 10/12/2016 and PET/CT from 04/25/2016. FINDINGS: HEAD AND NECK: There is no FDG-avid disease or significant lymphadenopathy in the imaged portions of the head and the neck. Layering fluid in the left maxillary sinus. Associated left maxillary wall thickening. CHEST: Right internal jugular Mediport terminates at the confluence of the right internal jugular and subclavian veins. Mid to distal esophageal wall thickening with an esophageal stent in place in the mid to distal portion. The stent extends through the gastroesophageal junction. FDG avidity along the esophagus is most pronounced in the mid portion along the proximal aspect of the stent (max SUV 4.2). No extension of FDG avidity through the gastroesophageal junction. Overall increase in extent of the FDG avid portion of the esophagus since the prior PET/CT in April. FDG avidity in the upper esophagus without significant wall thickening may be physiologic. Previously noted FDG avid pathologically enlarged lymph node in the superior mediastinum is no longer apparent, now only vague soft tissue infiltration noted in its place. Slight interval decrease in size of the remaining mediastinal lymph nodes, which have background level FDG avidity (max SUV 1.6). Bilateral hilar lymph nodes have only minimal FDG avidity slightly above background (max SUV 2.4 on the right and 2.6 on the left). Emphysema and mild bronchial wall thickening. No focal opacity or parenchymal FDG avidity. ABDOMEN/PELVIS: Below the diaphragm, tracer is distributed physiologically in the gastrointestinal and genitourinary tracts. There is no significant lymphadenopathy and no FDG-avid disease. MUSCULOSKELETAL: Degenerative changes of the spine. Bone lesion noted in a right rib. No destructive or FDG avid osseous lesion. IMPRESSION: 1. Since the prior PET/CT in April 2016, interval increase in size and extent of the FDG avid esophageal mass. However, interval resolution of the superior mediastinal FDG avid lymph node. This suggests a mixed response. No new sites of convincing lymphadenopathy or metastatic disease. No evidence of esophageal mass extension into the stomach. 2. Emphysema. Subcentimeter bilateral hilar lymph nodes with FDG avidity minimally above background could be reactive. 3. Layering fluid in the left maxillary sinus could suggest acute sinusitis. Additional changes of chronic sinusitis of the left maxillary sinus. Electronically signed by: Jose Hooks M.D. 11/05/2016 12:59 PM Dictated Date/Time: 11/05/2016 12:36 PM
== END ==
LOC: C.PET 10:05
PROVIDERS: ATTEND Physician Assistant Medical
DX: C15.9 Malignant neoplasm of esophagus, unspecified (principal)

== ENCOUNTER → 2017-02-26 | Day surgery (SDC) | payer OTHER ==
[2017-02-25 12:32] VITALS: Ht 180.3 cm; Wt 66.8 kg
[~2017-02-26] VITALS: Ht 180.3 cm; Wt 66.8 kg
[~2017-02-26] MED LIST changes: +500ML BSS 0.3ML EPI 1:1000PF IRRIG ONE; -ACET-749 PO; +ACETAMINOPHEN 325 MG TAB PO PRN; -ALBU4TAB10 INH; +ALUMSUS21 PO; -AMOX400S2 PO; +AMVISC PLUS 0.8ML SYRINGE INT OCU ONE; +ATOR10TA82 PO; -ATOR10TA88 PO; +ATROPINE SULFATE 0.1 MG/ML 5ML SYR IV PRN; +BSS FLUSH ONE; -CARV6.252 PO; +CLC100X PO; +CRG3125 PO; +DIPH25CA5 PO; +DLC5 PO; +EMOL-19 TOP; +EpHEDrine SULFATE INJ 50 MG/ML AMP IV PRN; +EpINEphrine INJ 1MG/ML AMP 1 MG/ML AMP ONE; +LACT10SO30 PO; +LACTATED RINGER'S 1000ML 500 ML IV SCH; +LIDOCAINE 3.5% OPH GEL PER APPLICATION CHARGE ONE; +LIDOCAINE HCL 1% MPF 2 ML VIAL ONE; +MAGIC1 PO; +METOPROLOL TARTRATE 1 MG/ML VIAL ONE; +MIDAZOLAM HCL 1 MG/ML 2ML VIAL ONE; -NEOMOIN76 TOP; +OXYC-738 PO; +OXYC1TAB3 PO; +POVIDONE-IODINE OP SOLN 30 ML BTL ONE; +PROPARACAINE 0.5% OP SOLN PER DROP CHARGE OPR SCH; +TOBRAMYCIN/DEXAMETHASONE OPH OINT PER APPLN CHARGE ONE; +VNTHFA/IN INH; +[UNRECOGNIZED DRUG - CODE] PO; -[UNRECOGNIZED DRUG - OTHER] PO
[2017-02-26] MEDS: PHENYLEPHRINE HCL 2.5% OP SOLN PER DROP CHARGE OPR SCH ×2 (07:23→07:28)
[2017-02-26] MEDS: TROPICAMIDE 1% OP SOLN PER DROP CHARGE OPR SCH ×2 (07:24→07:29)
[2017-02-26] MEDS: CYCLOPENTOLATE HCL 1% OP SOLN PER DROP CHARGE OPR SCH ×2 (07:25→07:30)
[2017-02-26] MEDS: KETOROLAC 0.5% OP SOLN PER DROP CHARGE OPR SCH ×2 (07:26→07:31)
[2017-02-26] MEDS: GATIFLOXACIN OP SOLN PER DROP CHARGE OPR SCH ×2 (07:27→07:37)
--- NOTE | 2017-02-26 08:11 | Discharge Instructions-SurgCtr ---
Discharge Instructions Date of Service Feb 26, 2017. Visit Reason for Visit: Right Cataract Discharge Discharge Diagnosis / Problem: cataract Discharge Goals Goal(s): Improve function Activity Recommendations Activity Limitations: per Instructions/Follow-up section Anesthesia . Post Anesthesia Instructions: If you have had General Anesthesia or IV Sedation: * Do not drive today. * Resume driving when surgeon permits. * Do not make important decisions or sign legal documents today. * Call surgeon for: 1. Temperature elevations greater than 101 degrees F. 2. Uncontrollable pain. 3. Excessive bleeding. 4. Persistent nausea and vomiting. 5. Medication intolerance (nausea, vomiting or rash). * For nausea and vomiting use only clear liquids such as: tea, soda, bouillon until nausea subsides, then gradually increase diet as tolerated. * If you have any concerns or questions, call your surgeon's office. If physician is unavailable and it is an emergency, call 911 or go to the nearest emergency room. . Diet Recommendations Home Diet: resume previous diet Procedures Procedures Performed: Right Cataract Phacoemulsification With Intraocular Lens Implant Pending Studies Studies pending at discharge: no Medical Emergencies . Who to Call and When: Medical Emergencies: If at any time you feel your situation is an emergency, please call 911 immediately. . Non-Emergent Contact Non-Emergency issues call your: Dietary Clerk . . "Provider Documentation" section prepared by Adan Patel. .
[2017-02-26 08:12] VITALS: TEMP 37.3
--- NOTE | 2017-02-26 08:12 | [facility] Operative Report ---
Operative Report Date of Service Feb 26, 2017. Operative Report 1. PREOPERATIVE DIAGNOSIS: Cataract of the right eye. 2. POSTOPERATIVE DIAGNOSIS: Same. 3. PROCEDURE: Phacoemulsification with intraocular lens implantation of the right eye. SURGEON: Dr. Adan Patel. ANESTHESIA: Topical Lidocaine gel, 1% Non- Preserved intracameral Lidocaine, and monitored intravenous sedation. INDICATIONS FOR THE PROCEDURE: The patient is a 71 - year-old male with a history of cataract of the right eye causing significant visual impairment. The details of the proposed procedure were explained to the patient who asked appropriate questions and following discussion of all risks, benefits and alternatives agreed to have the procedure done. 4. OPERATION AND FINDINGS: DESCRIPTION OF PROCEDURE: After informed consent was obtained, the patient was brought to the Operating Room at the [facility]. The patient was placed in a supine position and then the right eye was prepped and draped in the usual sterile fashion for intraocular surgery. A drop of topical Lidocaine gel was placed in the operative eye. A wire lid speculum was then placed in the fornices. A corneal paracentesis was then created temporally. The Non-Preserved Lidocaine was then instilled into the anterior chamber. The anterior chamber was then pressurized with viscoelastic. A 2.0 mm clear corneal incision was then created temporally. A cystotome was inserted into the anterior chamber and used to create a tear in the anterior lens capsule. This capsular tear was then used to create a small flap and the flap was dragged in a counterclockwise direction in order to create a continuous curvilinear capsulorrhexis. Hydrodissection was accomplished with balanced salt solution. Phacoemulsification of the lens nucleus was then performed in a standard [id number] technique. The phaco time was 24 seconds with an average power of 12 %. The remaining cortical material was removed using irrigation aspiration. The capsular bag was then filled with viscoelastic. A [employer] Lomb MI60L +18.5 diopters lens was then loaded into the injector and injected into the capsular bag. The remaining viscoelastic was removed with the irrigation aspiration handpiece. The wound was hydrated and then checked and found to be watertight. The intraocular pressure was checked and found to be adequate. The wire lid speculum was removed and the patient's face was cleaned and dried. TobraDex ointment was placed in the inferior fornix. The patient was discharged to the Recovery Room having tolerated the procedure well. There were no complications. The patient will be seen tomorrow in the office for follow-up. I attest to the content of the Intraoperative Record and any orders documented therein. Any exceptions are noted below.
--- NOTE | 2017-02-26 08:37 | Anesthesia Progress Nt - [facility] ---
Anesthesia Post Op Note Date & Time Feb 26, 2017 at 08:37 Vital Signs Pain Intensity: 0 Vital Signs Past 12 Hours Date Time Temp Pulse Resp B/P (MAP) Pulse Ox O2 Delivery O2 Flow Rate FiO2 02/26/17 08:12 37.3 90 16 103/67 (79) 99 Room Air 02/26/17 07:18 36.5 106 20 127/80 (96) 95 Room Air Notes Mental Status: alert / awake / arousable, participated in evaluation Pt Amnestic to Procedure: Yes Nausea / Vomiting: adequately controlled Pain: adequately controlled Airway Patency, RR, SpO2: stable & adequate BP & HR: stable & adequate Hydration State: stable & adequate Anesthetic Complications: no major complications apparent
[2017-02-26 08:43] VITALS: BP 109/68; PULSE 98; O2SAT 95
== END | disposition home or self-care (01) ==
LOC: X.SURG 07:07
PROVIDERS: ATTEND Ophthalmology
DX: H26.9 Unspecified cataract (principal); I25.10 Atherosclerotic heart disease of native coronary artery without angina pectoris; J44.9 Chronic obstructive pulmonary disease, unspecified; K21.9 Gastro-esophageal reflux disease without esophagitis